=== PATIENT | male | born 1985 | race African-American/Black ===

== ENCOUNTER → 2016-07-11 | Outpatient (CLI) | payer MEDICAID | LOC: RAD 07:35 | PROVIDERS: ATTEND Internal Medicine Gastroenterology | DX: K31.84 Gastroparesis (principal) | CPT/HCPCS: 78264; A9541 ==

== ENCOUNTER → 2016-09-14 | Outpatient (CLI) | payer MEDICAID | LOC: RAD 12:22 | PROVIDERS: ATTEND Internal Medicine Nephrology | DX: N18.2 Chronic kidney disease, stage 2 (mild) (principal); E10.21 Type 1 diabetes mellitus with diabetic nephropathy; R80.9 Proteinuria, unspecified | CPT/HCPCS: 76770 ==

== ENCOUNTER → 2016-10-12 | Outpatient (CLI) | payer MEDICAID ==
[2016-10-12 10:10] LABS: ABSOLUTE EOSINOPHILS # (AUTO) 0.1 10^3/uL (0.0-0.6); ABSOLUTE LYMPHOCYTES (AUTO) 1.6 10^3/uL (0.5-4.7); ABSOLUTE MONOCYTES (AUTO) 0.4 10^3/uL (0.1-1.4); BASOPHILS % (AUTO) 0.6 % (0-2); EOSINOPHILS % (AUTO) 2.2 % (0-6); HEMATOCRIT 33.6 % (37.9-51.0); HEMOGLOBIN 11.5 g/dL (13.5-17.0); HGB HCT DIFFERENCE 0.9; MEAN CORPUSCULAR HEMOGLOBIN 28.6 pg (27.0-33.4); MEAN CORPUSCULAR HGB CONC 34.3 g/dL (32.0-36.0); MEAN CORPUSCULAR VOLUME 83 fl (80-97); MONOCYTES % (AUTO) 7.2 % (3-13); RED BLOOD COUNT 4.04 10^6/uL (4.35-5.55); RED CELL DISTRIBUTION WIDTH 13.9 % (11.5-14.0); WHITE BLOOD COUNT 5.1 10^3/uL (4.0-10.5)
[2016-10-12 10:24] LABS: ALANINE AMINOTRANSFERASE 35 U/L (21-72); ALBUMIN 3.6 g/dL (3.5-5.0); ALKALINE PHOSPHATASE 129 U/L (38-126); ANION GAP 12 (5-19); ASPARTATE AMINO TRANSFERASE 20 U/L (17-59); BILIRUBIN,DIRECT 0.3 mg/dL (0.0-0.4); BILIRUBIN,TOTAL 0.3 mg/dL (0.2-1.3); BLOOD UREA NITROGEN 16 mg/dL (7-20); CALCIUM 9.8 mg/dL (8.4-10.2); CARBON DIOXIDE 28 mmol/L (22-30); CHLORIDE 102 mmol/L (98-107); CREATININE RESULT 1.09 mg/dL (0.52-1.25); GLUCOSE 324 mg/dL (75-110); MAGNESIUM 1.7 mg/dL (1.6-2.3); POTASSIUM 4.3 mmol/L (3.6-5.0); SODIUM 142.2 mmol/L (137-145); TOTAL PROTEIN 6.4 g/dL (6.3-8.2)
[2016-10-12 13:37] LABS: APPEARANCE,URINE CLEAR; BILIRUBIN,URINE NEGATIVE (NEGATIVE); GLUCOSE, URINE >=500 mg/dL (NEGATIVE); KETONES,URINE NEGATIVE (NEGATIVE); LEUKOCYTE ESTERASE,URINE NEGATIVE (NEGATIVE); NITRITE,URINE NEGATIVE (NEGATIVE); PROTEIN,URINE NEGATIVE (NEGATIVE); URINE SPECIFIC GRAVITY 1.028; UROBILINOGEN,URINE NEGATIVE mg/dL (<2.0)
[2016-10-12 14:03] LABS: URINE CREATININE 61.5 mg/dL (24-392); URINE PROTEIN 12.7 mg/dL (<12)
== END ==
LOC: OD 09:30
PROVIDERS: ATTEND Internal Medicine Nephrology
DX: I12.9 Hypertensive chronic kidney disease with stage 1 through stage 4 chronic kidney disease, or unspecified chronic kidney disease (principal); N18.2 Chronic kidney disease, stage 2 (mild); E11.9 Type 2 diabetes mellitus without complications; D64.9 Anemia, unspecified
CPT/HCPCS: 36415; 80053; 81001; 82570; 82728; 83540; 83550; 83735; 84100; 84156; 84443; 85025

== ENCOUNTER → 2016-11-26 | Outpatient (CLI) | payer MEDICAID ==
[2016-11-26 15:59] LABS: HEMATOCRIT 39.6 % (37.9-51.0); HEMOGLOBIN 13.1 g/dL (13.5-17.0); HGB HCT DIFFERENCE -0.3; MEAN CORPUSCULAR HGB CONC 33.1 g/dL (32.0-36.0); MEAN CORPUSCULAR VOLUME 82 fl (80-97); RED BLOOD COUNT 4.86 10^6/uL (4.35-5.55); RED CELL DISTRIBUTION WIDTH 13.6 % (11.5-14.0); WHITE BLOOD COUNT 4.1 10^3/uL (4.0-10.5)
[2016-11-26 16:17] LABS: APPEARANCE,URINE CLEAR; BILIRUBIN,URINE NEGATIVE (NEGATIVE); GLUCOSE, URINE >=500 mg/dL (NEGATIVE); KETONES,URINE NEGATIVE (NEGATIVE); LEUKOCYTE ESTERASE,URINE NEGATIVE (NEGATIVE); NITRITE,URINE NEGATIVE (NEGATIVE); PROTEIN,URINE 30 mg/dL (NEGATIVE); URINE SPECIFIC GRAVITY 1.025; UROBILINOGEN,URINE NEGATIVE mg/dL (<2.0)
[2016-11-26 16:40] LABS: ANION GAP 14 (5-19); BLOOD UREA NITROGEN 19 mg/dL (7-20); CALCIUM 10.3 mg/dL (8.4-10.2); CARBON DIOXIDE 25 mmol/L (22-30); CHLORIDE 104 mmol/L (98-107); CREATININE RESULT 0.71 mg/dL (0.52-1.25); GLUCOSE 222 mg/dL (75-110); POTASSIUM 4.7 mmol/L (3.6-5.0)
[2016-11-28 11:39] LABS: CREATININE URINE 87.2 mg/dL (Not Estab.); MICROALBUMIN URINE 136.3 ug/mL (Not Estab.)
== END ==
LOC: OD 14:40
PROVIDERS: ATTEND Internal Medicine Nephrology
DX: N18.2 Chronic kidney disease, stage 2 (mild) (principal); R80.9 Proteinuria, unspecified; E11.9 Type 2 diabetes mellitus without complications; D64.9 Anemia, unspecified
CPT/HCPCS: 36415; 80048; 81001; 82043; 82570; 85027

== ENCOUNTER 2017-05-20 18:04 | Emergency (ER) | payer MEDICAID, OTHER ==
[2017-05-20 18:37] VITALS: BP 144/88
--- NOTE | 2017-05-20 19:35 | ER Document Report ---
ED Medical Screen (RME) - General Chief Complaint: Headache Stated Complaint: FATIGUE,HEADACHE Time Seen by Provider: 05/20/17 19:16 TRAVEL OUTSIDE OF THE [place] IN LAST 30 DAYS: No - HPI Notes: 05/20/17 19:33 This is a 31-year-old male with history of diabetes and chronic kidney disease who presents with a multitude of symptoms. Unclear exactly how long these symptoms have been going on but most apparently have been over the last 3 days. He has not had an wallpaper printer for approximately a year now but has been using Humalog through an insulin pump but recently has changed over to boluses subcu to save money and insulin. His sugars have been running from 39 up to 600s intermittently. He has had nausea but this is improved right now with Phenergan. Also admits to fairly diffuse pain some from arthritis others include headache chest discomfort and abdominal pain though more in the bilateral flank regions. No obvious fever. No purulent cough. He has a fairly large positive review of systems otherwise. Brief exam shows lungs and heart to be normal. Mild tenderness in the bilateral lateral abdomen in the seated position. Patient was seen for a rapid medical screening exam. Further assessment and diagnostic/treatment considerations will be performed further as appropriate treatment areas are available for a complete evaluation. - Related Data Allergies/Adverse Reactions: No Known Allergies Allergy (Verified 05/20/17 18:23) Past Medical History - Social History Frequency of alcohol use: None Drug Abuse: None - Past Medical History Cardiac Medical History: Reports: Hx Hypertension Endocrine Medical History: Reports: Hx Diabetes Mellitus Type 1 Renal/ Medical History: Denies: Hx Peritoneal Dialysis Psychiatric Medical History: Reports: Hx Bipolar Disorder Past Surgical History: Reports: Hx Oral Surgery, Hx Orthopedic Surgery - Immunizations Hx Diphtheria, Pertussis, Tetanus Vaccination: Yes Physical Exam - Vital signs Vitals: Temp Pulse Resp BP Pulse Ox 98.9 F 106 H 16 144/88 H 99 05/20/17 18:37 05/20/17 18:37 05/20/17 18:37 05/20/17 18:37 05/20/17 18:37 Course - Vital Signs Vital signs: Temp Pulse Resp BP Pulse Ox 98.9 F 106 H 16 144/88 H 99 05/20/17 18:37 05/20/17 18:37 05/20/17 18:37 05/20/17 18:37 05/20/17 18:37 - Laboratory Laboratory results interpreted by me: 05/20/17 18:29 POC Glucose 228 H
[2017-05-20 20:14] LABS: ABSOLUTE LYMPHOCYTES (AUTO) 1.6 10^3/uL (0.5-4.7); ABSOLUTE MONOCYTES (AUTO) 0.4 10^3/uL (0.1-1.4); ABSOLUTE NEUT (AUTO) 2.9 10^3/uL (1.7-8.2); BASOPHILS % (AUTO) 0.4 % (0-2); EOSINOPHILS % (AUTO) 0.6 % (0-6); HEMATOCRIT 42.2 % (37.9-51.0); HEMOGLOBIN 14.4 g/dL (13.5-17.0); MEAN CORPUSCULAR HEMOGLOBIN 27.8 pg (27.0-33.4); MEAN CORPUSCULAR HGB CONC 34.1 g/dL (32.0-36.0); MEAN CORPUSCULAR VOLUME 82 fl (80-97); MONOCYTES % (AUTO) 7.5 % (3-13); RED BLOOD COUNT 5.17 10^6/uL (4.35-5.55); RED CELL DISTRIBUTION WIDTH 14.1 % (11.5-14.0); SEGMENTED NEUTROPHILS % (AUTO) 58.5 % (42-78); WHITE BLOOD COUNT 4.9 10^3/uL (4.0-10.5)
[2017-05-20 20:27] LABS: APPEARANCE,URINE CLEAR; BILIRUBIN,URINE NEGATIVE (NEGATIVE); GLUCOSE, URINE >=500 mg/dL (NEGATIVE); KETONES,URINE 20 mg/dL (NEGATIVE); LEUKOCYTE ESTERASE,URINE NEGATIVE (NEGATIVE); NITRITE,URINE NEGATIVE (NEGATIVE); PROTEIN,URINE 100 mg/dL (NEGATIVE); UROBILINOGEN,URINE NEGATIVE mg/dL (<2.0)
[2017-05-20 20:28] LABS: ALANINE AMINOTRANSFERASE 38 U/L (21-72); ALBUMIN 4.9 g/dL (3.5-5.0); ALKALINE PHOSPHATASE 97 U/L (38-126); ANION GAP 15 (5-19); ASPARTATE AMINO TRANSFERASE 21 U/L (17-59); BILIRUBIN,DIRECT 0.3 mg/dL (0.0-0.4); BLOOD UREA NITROGEN 13 mg/dL (7-20); CALCIUM 10.1 mg/dL (8.4-10.2); CARBON DIOXIDE 27 mmol/L (22-30); CHLORIDE 98 mmol/L (98-107); CREATININE RESULT 0.83 mg/dL (0.52-1.25); GLUCOSE 235 mg/dL (75-110); LIPASE 46.4 U/L (23-300); POTASSIUM 4.8 mmol/L (3.6-5.0); SODIUM 140.2 mmol/L (137-145); TOTAL PROTEIN 8.1 g/dL (6.3-8.2)
--- NOTE | 2017-05-20 20:31 | RADIOLOGY REPORT (SQ) ---
EXAM DESCRIPTION: CHEST PA/LAT COMPLETED DATE/TIME: 05/20/2017 8:12 pm REASON FOR STUDY: CP COMPARISON: None. EXAM PARAMETERS: NUMBER OF VIEWS: two views TECHNIQUE: Digital Frontal and Lateral radiographic views of the chest acquired. RADIATION DOSE: NA LIMITATIONS: none FINDINGS: LUNGS AND PLEURA: No opacities, masses or pneumothorax. No pleural effusion. MEDIASTINUM AND HILAR STRUCTURES: No masses or contour abnormalities. HEART AND VASCULAR STRUCTURES: Heart normal size. No evidence for failure. BONES: No acute findings. HARDWARE: None in the chest. OTHER: No other significant finding. IMPRESSION: NO SIGNIFICANT RADIOGRAPHIC FINDING IN THE CHEST. TECHNICAL DOCUMENTATION: JOB ID: [id number] [employer] All Rights Reserved
[2017-05-20] MEDS ORDERED: NORMAL SALINE 1000 ML 1,000 ML IV ONE (22:07)
--- NOTE | 2017-05-20 22:10 | ER Document Report ---
ED General - General Chief Complaint: Headache Stated Complaint: FATIGUE,HEADACHE Time Seen by Provider: 05/20/17 19:16 Notes: Patient is a 31-year-old male who presents with complaint of feeling fatigued and weak and having body aches and being dizzy. Patient says this started after he switched from doing his insulin pump to doing subcutaneous injections of insulin. He said he did this because he lost his Medicaid because he makes too much money. He says this is more affordable with administering his insulin ; however, he says that his sugars have been fluctuating greatly since then. He says his [place] sugars have been as low as 39 but is high of 600. He denies any fevers. He says had some nausea but no vomiting. He says his IBS with bowel movements are always sometimes constipated or sometimes loose. He has had some intermittent headaches. He has no other complaints at this time. TRAVEL OUTSIDE OF THE [place] IN LAST 30 DAYS: No - Related Data Allergies/Adverse Reactions: No Known Allergies Allergy (Verified 05/20/17 18:23) Past Medical History - Social History Smoking Status: Never Smoker Frequency of alcohol use: None Drug Abuse: None Family History: Reviewed & Not Pertinent Patient has suicidal ideation: No Patient has homicidal ideation: No - Past Medical History Cardiac Medical History: Reports: Hx Hypertension Endocrine Medical History: Reports: Hx Diabetes Mellitus Type 1 Renal/ Medical History: Denies: Hx Peritoneal Dialysis Psychiatric Medical History: Reports: Hx Bipolar Disorder Past Surgical History: Reports: Hx Oral Surgery, Hx Orthopedic Surgery - Immunizations Hx Diphtheria, Pertussis, Tetanus Vaccination: Yes Review of Systems - Review of Systems Notes: My Normal Review Basic REVIEW OF SYSTEMS: CONSTITUTIONAL : Denies fever. Has had body aches and fatigue. EENT: Denies eye, ear, throat, or mouth pain or symptoms. Denies nasal or sinus congestion. CARDIOVASCULAR: Denies chest pain. RESPIRATORY: Denies cough, cold, or chest congestion. Denies shortness of breath, difficulty breathing, or wheezing. GASTROINTESTINAL: Denies abdominal pain. Nausea. No vomiting. GENITOURINARY: Denies difficulty urinating, painful urination, burning, frequency, or blood in urine. MUSCULOSKELETAL: Muscle aches SKIN: Denies rash or skin lesions. NEUROLOGICAL: Denies altered mental status or loss of consciousness. Intermittent headache. Denies weakness or paralysis or loss of use of either side. Denies problems with gait or speech. Denies sensory or motor loss. ALL OTHER SYSTEMS REVIEWED AND NEGATIVE. Physical Exam - Vital signs Vitals: Temp Pulse Resp BP Pulse Ox 98.9 F 106 H 16 144/88 H 99 05/20/17 18:37 05/20/17 18:37 05/20/17 18:37 05/20/17 18:37 05/20/17 18:37 - Notes Notes: General Appearance: Well nourished, alert, cooperative, no acute distress, no obvious discomfort. Well appearing. Vitals: reviewed, See vital signs table. Head: no swelling or tenderness to the head Eyes: PERRL, EOMI, Conjuctiva clear Mouth: No decreasd moisture Neck: Supple, no neck tenderness Lungs: No wheezing, No rales, No rhonci, No accessory muscle use, good air exchange bilaterally. Heart: Normal rate, Regular rythm, No murmur, no rub Abdomen: Normal BS, soft, No rigidity, No abdominal tenderness, No guarding, no rebound, no abdominal masses, no organomegaly Extremities: strength 5/5 in all extremities, good pulses in all extremities, no swelling or tenderness in the extremities, no edema. Skin: warm, dry, appropriate color, no rash Neuro: speech clear, oriented x 3, normal affect, responds appropriately to questions. Course - Re-evaluation Re-evalutation: 05/21/17 03:53 Patient is feeling much improved after receiving the IV fluids. I suspect that his symptoms are related to his fluctuating blood sugars most likely some dehydration so she with that as well. He has no metabolic acidosis. He does have some small ketones in his urine. He is not in DKA. I will place him on Lantus basal insulin and hopefully this will help keep his blood sugars more stable. I will give him instructions on a sliding scale for his insulin usage. Strongly encouraged him to follow back up with his primary care physician. I did attempt to get the patient a Lantus pen here to go home with; however, the nurse informed me that we no longer carry the Lantus pens. I therefore look for the cheapest way of getting him long-acting insulin. The cheapest way I could find was on [facility] with a coupon for 5 Lantus pens for $243. Patient says it will be difficult to afford that he will attempt to try to get the insulin being that the regular insulin is not controlling his sugars well at home. Patient encouraged to return to ER if he has vomiting, recurrence of the symptoms of weakness and fatigue and body aches, or if he feels that his sugars are again not well controlled. Patient agrees with plan will be discharged home. Dictation of this chart was performed using voice recognition software; therefore, there may be some unintended grammatical errors. - Vital Signs Vital signs: Temp Pulse Resp BP Pulse Ox 98.9 F 106 H 16 144/88 H 99 05/20/17 18:37 05/20/17 18:37 05/20/17 18:37 05/20/17 18:37 05/20/17 18:37 - Laboratory Result Diagrams: 05/20/17 19:50 05/20/17 19:50 Laboratory results interpreted by me: 05/20/17 05/20/17 05/20/17 18:29 19:50 19:50 RDW 14.1 H Glucose 235 H POC Glucose 228 H Urine Protein Urine Glucose (UA) Urine Ketones Urine Ascorbic Acid 05/20/17 05/20/17 19:50 23:03 RDW Glucose POC Glucose 213 H Urine Protein 100 H Urine Glucose (UA) >=500 H Urine Ketones 20 H Urine Ascorbic Acid 40 H Discharge - Discharge Clinical Impression: Dehydration, Hyperglycemia Condition: Good Disposition: HOME, SELF-CARE Additional Instructions: Please give yourself 15 units of Lantus every morning and continue a sliding scale with your Novolog at home. Please keep a close eye on your blood sugars to make sure they are not dropping. Please follow up closely with your doctor. Return to the ER if you have any further concerns. Prescriptions: Insulin Glargine,Hum.rec.anlog [Lantus Solostar] 15 unit SQ QAM #1 insuln.pen Insulin Lispro [Humalog Insulin 100 Unit/1 ml 3 ml Vial] 0 unit SUBCUT .SLD SCALE #10 ml Lantus Solostar [place] 1 unit SUBCUT QAM #1 Referrals: SIOMARA CARPIO DO [Primary Care Provider] - Follow up in 3-5 days
[2017-05-20] MEDS: NORMAL SALINE 1000 ML 1,000 ML IV PRN ×2 (22:25→22:36)
--- NOTE | 2017-05-20 23:03 | EKG REPORT ---
SEVERITY:- ABNORMAL ECG - SINUS TACHYCARDIA CONSIDER LEFT VENTRICULAR HYPERTROPHY : Confirmed by: Malena Jean 20-May-2017 23:02:47
[2017-05-20] MEDS ORDERED: INSULIN GLARGINE,HUM.REC.ANLOG 300 UNIT/3 ML INSULN.PEN SUBCUT ONE (23:30)
[2017-05-20] MEDS ORDERED: INSULIN GLARGINE,HUM.REC.ANLOG 1,000 UNIT/10 ML UNIT SUBCUT ONE (23:58)
== END 2017-05-21 01:03 | disposition home or self-care (01) ==
LOC: ER 18:04
DX: E86.0 Dehydration (principal); E10.65 Type 1 diabetes mellitus with hyperglycemia; R51 Headache; R53.83 Other fatigue; I10 Essential (primary) hypertension; Z79.4 Long term (current) use of insulin
CPT/HCPCS: 93005; 99284; 96360; 36415; 82962; 83690; 85025; 80053; 81001; 71020; 93010; J7030; J1815

== ENCOUNTER 2017-06-02 13:23 | Emergency (ER) | payer SELFPAY ==
[2017-06-02 13:28] VITALS: BP 146/89
[2017-06-02] MEDS ORDERED: CIPROFLOXACIN HCL/DEXAMETH OTIC DROP 7.5 ML AD ONE (13:49)
[2017-06-02] MEDS ORDERED: IBUPROFEN 800 MG TABLET PO ONE (13:49)
--- NOTE | 2017-06-02 13:54 | ER Document Report ---
HPI - HPI Onset: Other Onset/Duration: Gradual Quality of pain: Throbbing Severity: Severe Pain Level: 5 Context: Patient states he has had been having right ear pain for the last 4-5 days and is now having difficulty hearing out of the ear. Denies fever. No congestion. Associated Symptoms: Earache Exacerbated by: Denies Relieved by: Denies Similar symptoms previously: Yes Recently seen / treated by doctor: No - ROS ROS below otherwise negative: Yes Systems Reviewed and Negative: Yes All other systems reviewed and negative - CONSTITUTIONAL Constitutional: DENIES: Fever - EENT EENT: REPORTS: Ear Pain. DENIES: Congestion - NEURO Neurology: DENIES: Headache - CARDIOVASCULAR Cardiovascular: DENIES: Chest pain - RESPIRATORY Respiratory: DENIES: Trouble Breathing - GASTROINTESTINAL Gastrointestinal: DENIES: Abdominal Pain - URINARY Urinary: DENIES: Dysuria - MUSCULOSKELETAL Musculoskeletal: DENIES: Extremity pain - DERM Skin Color: Normal Past Medical History - General Information source: Patient - Social History Smoking Status: Never Smoker Cigarette use (# per day): No Frequency of alcohol use: Occasional Drug Abuse: None Lives with: Family Family History: Reviewed & Not Pertinent - Past Medical History Cardiac Medical History: Reports: Hx Hypertension Endocrine Medical History: Reports: Hx Diabetes Mellitus Type 1 Psychiatric Medical History: Reports: Hx Bipolar Disorder Past Surgical History: Reports: Hx Oral Surgery, Hx Orthopedic Surgery - Immunizations Hx Diphtheria, Pertussis, Tetanus Vaccination: Yes Vertical Provider Document - CONSTITUTIONAL Agree With Documented VS: Yes Exam Limitations: No Limitations General Appearance: WD/WN, No Apparent Distress - INFECTION CONTROL TRAVEL OUTSIDE OF THE [place] IN LAST 30 DAYS: No - HEENT HEENT: Atraumatic, Normocephalic Notes: Left ear and throat normal. Pain with movement of right auricle, mild edema noted to canal. Unable to see the TM. - NECK Neck: Normal Inspection - RESPIRATORY Respiratory: Breath Sounds Normal, No Respiratory Distress O2 Sat by Pulse Oximetry: 95 - CARDIOVASCULAR Cardiovascular: Regular Rate, Regular Rhythm - MUSCULOSKELETAL/EXTREMETIES Musculoskeletal/Extremeties: MAEW - NEURO Level of Consciousness: Awake, Alert, Appropriate - DERM Integumentary: Warm, Dry Course - Re-evaluation Re-evalutation: 06/02/17 14:01 Ciprodex instilled to right ear without difficulty. Patient tolerated well. - Vital Signs Vital signs: Temp Pulse Resp BP Pulse Ox 98.7 F 102 H 18 146/89 H 95 06/02/17 13:28 06/02/17 13:28 06/02/17 13:28 06/02/17 13:28 06/02/17 13:28 Discharge - Discharge Clinical Impression: Right otitis externa Qualifiers: Otitis externa type: unspecified type Chronicity: acute Qualified Code(s): H60.501 - Unspecified acute noninfective otitis externa, right ear Condition: Good Disposition: HOME, SELF-CARE Instructions: Use of Ear Drops ([facility]) Additional Instructions: Use eardrops for 1 week as directed Tylenol or ibuprofen as needed for ear pain Follow-up with your doctor next week for recheck Do not stick anything into your ears return as needed
== END 2017-06-02 14:35 | disposition home or self-care (01) ==
LOC: ER 13:23
DX: H60.501 Unspecified acute noninfective otitis externa, right ear (principal); H92.01 Otalgia, right ear; H91.91 Unspecified hearing loss, right ear
CPT/HCPCS: 99282; J3490

== ENCOUNTER → 2017-10-16 | Outpatient (CLI) | payer MEDICARE, MEDICAID ==
[2017-10-16 15:04] LABS: HEMATOCRIT 40.3 % (37.9-51.0); HEMOGLOBIN 13.5 g/dL (13.5-17.0); MEAN CORPUSCULAR HEMOGLOBIN 26.9 pg (27.0-33.4); MEAN CORPUSCULAR HGB CONC 33.5 g/dL (32.0-36.0); MEAN CORPUSCULAR VOLUME 80 fl (80-97); PLATELET COUNT 221 10^3/uL (150-450); RED BLOOD COUNT 5.02 10^6/uL (4.35-5.55); WHITE BLOOD COUNT 8.2 10^3/uL (4.0-10.5)
[2017-10-16 15:19] LABS: ANION GAP 14 (5-19); BLOOD UREA NITROGEN 24 mg/dL (7-20); CALCIUM 9.9 mg/dL (8.4-10.2); CARBON DIOXIDE 29 mmol/L (22-30); CHLORIDE 99 mmol/L (98-107); GLUCOSE 200 mg/dL (75-110); POTASSIUM 4.4 mmol/L (3.6-5.0); SODIUM 141.8 mmol/L (137-145)
[2017-10-16 19:03] LABS: APPEARANCE,URINE CLEAR; BILIRUBIN,URINE NEGATIVE (NEGATIVE); COLOR,URINE YELLOW; GLUCOSE, URINE >=500 mg/dL (NEGATIVE); KETONES,URINE NEGATIVE (NEGATIVE); LEUKOCYTE ESTERASE,URINE NEGATIVE (NEGATIVE); NITRITE,URINE NEGATIVE (NEGATIVE); PROTEIN,URINE 30 mg/dL (NEGATIVE); URINE SPECIFIC GRAVITY 1.017; UROBILINOGEN,URINE NEGATIVE mg/dL (<2.0)
[2017-10-18 12:38] LABS: CREATININE URINE 121.6 mg/dL (Not Estab.); MICROALBUMIN URINE 163.9 ug/mL (Not Estab.)
== END ==
LOC: OD 14:11
PROVIDERS: ATTEND Internal Medicine Nephrology
DX: R80.2 Orthostatic proteinuria, unspecified (principal); N18.2 Chronic kidney disease, stage 2 (mild); D64.9 Anemia, unspecified
CPT/HCPCS: 36415; 80048; 81001; 82043; 82570; 85027

== ENCOUNTER → 2018-06-18 | Outpatient (CLI) | payer MEDICARE, MEDICAID ==
--- NOTE | 2018-06-18 12:27 | RADIOLOGY REPORT (SQ) ---
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 NUMBER OF VIEWS: Five views. TECHNIQUE: AP, lateral, obliques and odontoid radiographic images acquired of the cervical spine. LIMITATIONS: None. FINDINGS: MINERALIZATION: Normal. ALIGNMENT: Mild straightening of the normal cervical lordosis, likely positional. VERTEBRAE: Vertebral bodies of normal height. DISCS: Mild disc height loss at C2-3, stable. No Significant osteophytes or sclerosis. Remaining di sc height maintained. FORAMINA: No osteophytes or foraminal narrowing. LATERAL AND POSTERIOR ELEMENTS: Facets, lateral masses and spinous processes without significant find ings. 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 HARDWARE: None in the spine. SOFT TISSUES: No masses or calcifications. Lung apices clear. OTHER: No other significant finding. IMPRESSION: Mild disc height loss at C2-3, stable. Otherwise, unremarkable cervical spine radiographs. TECHNICAL DOCUMENTATION: JOB ID: [id number] [employer]- All Rights Reserved Reading location - IP/workstation name: [email or web address]
--- NOTE | 2018-06-18 12:39 | RADIOLOGY REPORT (SQ) ---
EXAM DESCRIPTION: LUMBAR SPINE COMPLETE COMPLETED DATE/TIME: 06/18/2018 12:05 pm REASON FOR STUDY: OSTEOARTHRITIS OF CSPINE, SPINE STENOSIS OF LUMBAR REGION M48.061 SPINAL STENOSIS , LUMBAR REGION WITHOUT NEUROGENIC CL M47.812 SPONDYLOSIS W/O MYELOPATHY OR RADICULOPATHY, CERVICA COMPARISON: 04/02/2016 NUMBER OF VIEWS: Five views including obliques. TECHNIQUE: AP, lateral, oblique, and sacral radiographic images acquired of the lumbar spine. LIMITATIONS: None. FINDINGS: MINERALIZATION: Normal. SEGMENTATION: Normal. No transitional anatomy. ALIGNMENT: Mild straightening of the normal lumbar lordosis. VERTEBRAE: Maintained height. No fracture or worrisome bone lesion. DISCS: Preserved height. No significant osteophytes or end plate irregularity. POSTERIOR ELEMENTS: Pedicles and facets are intact. No pars defect or posterior arch defects. HARDWARE: None in the spine. PARASPINAL SOFT TISSUES: Normal. PELVIS: Intact as visualized. No fractures or worrisome bone lesions. SI joints intact. OTHER: No other significant finding. IMPRESSION: Straightening of the normal lumbar lordosis, possibly positional. Otherwise, unremarkable lumbar spine radiographs. TECHNICAL DOCUMENTATION: JOB ID: [id number] [employer]- All Rights Reserved Reading location - IP/workstation name: [email or web address]
== END ==
LOC: OD 11:26
PROVIDERS: ATTEND Family Medicine
DX: M48.061 Spinal stenosis, lumbar region without neurogenic claudication (principal); M47.812 Spondylosis without myelopathy or radiculopathy, cervical region
CPT/HCPCS: 72050; 72110

== ENCOUNTER → 2018-10-31 | Outpatient (CLI) | payer MEDICAID, MEDICARE ==
[2018-10-31 12:31] LABS: HEMATOCRIT 43.4 % (37.9-51.0); HEMOGLOBIN 14.3 g/dL (13.5-17.0); MEAN CORPUSCULAR HEMOGLOBIN 27.2 pg (27.0-33.4); MEAN CORPUSCULAR VOLUME 83 fl (80-97); PLATELET COUNT 235 10^3/uL (150-450); RED BLOOD COUNT 5.26 10^6/uL (4.35-5.55); RED CELL DISTRIBUTION WIDTH 14.7 % (11.5-14.0); WHITE BLOOD COUNT 5.2 10^3/uL (4.0-10.5)
[2018-10-31 12:53] LABS: ANION GAP 16 (5-19); BLOOD UREA NITROGEN 23 mg/dL (7-20); CALCIUM 10.5 mg/dL (8.4-10.2); CARBON DIOXIDE 27 mmol/L (22-30); CHLORIDE 98 mmol/L (98-107); GLUCOSE 228 mg/dL (75-110); POTASSIUM 4.8 mmol/L (3.6-5.0); SODIUM 140.9 mmol/L (137-145)
[2018-10-31 18:08] LABS: APPEARANCE,URINE SLIGHTLY-CLOUDY; BILIRUBIN,URINE NEGATIVE (NEGATIVE); COLOR,URINE YELLOW; GLUCOSE, URINE 150 mg/dL (NEGATIVE); KETONES,URINE TRACE mg/dL (NEGATIVE); LEUKOCYTE ESTERASE,URINE NEGATIVE (NEGATIVE); NITRITE,URINE NEGATIVE (NEGATIVE); PROTEIN,URINE 30 mg/dL (NEGATIVE); URINE SPECIFIC GRAVITY 1.019; UROBILINOGEN,URINE NEGATIVE mg/dL (<2.0)
[2018-10-31 18:33] LABS: UR PRO/CREAT RATIO RESULT 0.2 mg/mg (0.0-0.2); URINE CREATININE 236.7 mg/dL (24-392); URINE PROTEIN 37.9 mg/dL (<12)
== END ==
LOC: OD 11:35
PROVIDERS: ATTEND Internal Medicine Nephrology
DX: I12.9 Hypertensive chronic kidney disease with stage 1 through stage 4 chronic kidney disease, or unspecified chronic kidney disease (principal); N18.2 Chronic kidney disease, stage 2 (mild); D64.9 Anemia, unspecified; E11.22 Type 2 diabetes mellitus with diabetic chronic kidney disease; R80.9 Proteinuria, unspecified
CPT/HCPCS: 36415; 80048; 81001; 82570; 84156; 85027

== ENCOUNTER → 2018-11-10 | Outpatient (CLI) | payer MEDICARE, MEDICAID ==
[2018-11-10 14:34] LABS: HEMATOCRIT 35.8 % (37.9-51.0); HEMOGLOBIN 12.1 g/dL (13.5-17.0); MEAN CORPUSCULAR HEMOGLOBIN 27.8 pg (27.0-33.4); MEAN CORPUSCULAR HGB CONC 33.7 g/dL (32.0-36.0); MEAN CORPUSCULAR VOLUME 83 fl (80-97); PLATELET COUNT 234 10^3/uL (150-450); RED BLOOD COUNT 4.34 10^6/uL (4.35-5.55); RED CELL DISTRIBUTION WIDTH 14.4 % (11.5-14.0)
[2018-11-10 14:35] LABS: APPEARANCE,URINE CLEAR; BILIRUBIN,URINE NEGATIVE (NEGATIVE); COLOR,URINE STRAW; GLUCOSE, URINE >=500 mg/dL (NEGATIVE); KETONES,URINE NEGATIVE (NEGATIVE); LEUKOCYTE ESTERASE,URINE NEGATIVE (NEGATIVE); NITRITE,URINE NEGATIVE (NEGATIVE); PROTEIN,URINE NEGATIVE (NEGATIVE); URINE SPECIFIC GRAVITY 1.017; UROBILINOGEN,URINE NEGATIVE mg/dL (<2.0)
[2018-11-10 14:54] LABS: ANION GAP 12 (5-19); BLOOD UREA NITROGEN 20 mg/dL (7-20); CALCIUM 9.8 mg/dL (8.4-10.2); CARBON DIOXIDE 28 mmol/L (22-30); CHLORIDE 102 mmol/L (98-107); GLUCOSE 237 mg/dL (75-110); POTASSIUM 4.2 mmol/L (3.6-5.0); SODIUM 141.7 mmol/L (137-145)
[2018-11-10 15:11] LABS: UR PRO/CREAT RATIO RESULT 0.3 mg/mg (0.0-0.2); URINE CREATININE 67.3 mg/dL (24-392); URINE PROTEIN 19.3 mg/dL (<12)
== END ==
LOC: OD 14:02
PROVIDERS: ATTEND Internal Medicine Nephrology
DX: I12.9 Hypertensive chronic kidney disease with stage 1 through stage 4 chronic kidney disease, or unspecified chronic kidney disease (principal); N18.2 Chronic kidney disease, stage 2 (mild); R80.9 Proteinuria, unspecified; E11.22 Type 2 diabetes mellitus with diabetic chronic kidney disease; D64.9 Anemia, unspecified
CPT/HCPCS: 36415; 80048; 81001; 82570; 84156; 85027

== ENCOUNTER 2018-12-09 21:42 | Emergency (ER) | payer MEDICARE, MEDICAID ==
--- NOTE | 2018-12-09 22:59 | ER Document Report ---
ED Medical Screen (RME) - General Chief Complaint: Ear Pain Stated Complaint: JAW PAIN, POSSIBLE EAR INFECTION Time Seen by Provider: 12/09/18 22:45 Primary Care Provider: Aicha MCKOEN MD [Primary Care Provider] - Follow up as needed Notes: Patient is a 32-year-old male with a history of type 1 diabetes, glaucoma, spinal stenosis, hypertension stage III kidney disease and neuropathy who presents to the emergency department with a chief complaint of left ear pain and left facial swelling. Patient states that he developed left ear pain almost 2 weeks ago. Patient states he is also had a fever of 101.1 at home. Patient states he attempted to take his oxycodone 10 mg that he is prescribed for arthritis but has not been helping. Patient states he was seen at urgent care yesterday and diagnosed with a left ear infection and prescribed moxifloxacin which he is taken for the past 24 hours. Patient states that his sugars have been running in the 500s with the continued use of his insulin pump. Patient states he has had chills. Patient states he has had significant left ear pain and swelling. TRAVEL OUTSIDE OF THE [place] IN LAST 30 DAYS: No - Related Data Allergies/Adverse Reactions: No Known Allergies Allergy (Verified 05/20/17 18:23) Past Medical History - Social History Chew tobacco use (# tins/day): No Drug Abuse: None - Past Medical History Cardiac Medical History: Reports: Hx Hypertension Endocrine Medical History: Reports: Hx Diabetes Mellitus Type 1 Renal/ Medical History: Denies: Hx Peritoneal Dialysis Musculoskeltal Medical History: Reports Hx Arthritis Psychiatric Medical History: Reports: Hx Bipolar Disorder Past Surgical History: Reports: Hx Oral Surgery, Hx Orthopedic Surgery - Immunizations Hx Diphtheria, Pertussis, Tetanus Vaccination: Yes Physical Exam - Vital signs Vitals: Temp Pulse Resp BP Pulse Ox 98.8 F 112 H 22 H 152/95 H 100 12/09/18 21:48 12/09/18 21:48 12/09/18 21:48 12/09/18 21:48 12/09/18 21:48 - HEENT Notes: Patient does have left facial swelling with significant tenderness. Patient left ear tender to the external pinna and tragus. Patient does have a mild amount of mastoid tenderness. Positive large cervical lymph node noted. Also unable to visualize the left tympanic membrane as the ear canal is completely swollen. Pharynx is clear, tonsils appear normal in size without erythema or exudates. Airway is patent. Course - Re-evaluation Re-evalutation: 12/09/18 23:07 I have greeted and performed a rapid initial assessment of this patient. A comprehensive ED assessment and evaluation of the patient, analysis of test results and completion of the medical decision making process will be conducted by additional ED providers. - Vital Signs Vital signs: Temp Pulse Resp BP Pulse Ox 98.8 F 112 H 22 H 152/95 H 100 12/09/18 21:48 12/09/18 21:48 12/09/18 21:48 12/09/18 21:48 12/09/18 21:48 Doctor's Discharge - Discharge Referrals: Aicha MCKEON MD [Primary Care Provider] - Follow up as needed
[2018-12-09] MEDS ORDERED: NORMAL SALINE 1000 ML 1,000 ML IV ONE (23:09)
[2018-12-10 00:41] LABS: ABSOLUTE EOSINOPHILS # (AUTO) 0.2 10^3/uL (0.0-0.6); ABSOLUTE LYMPHOCYTES (AUTO) 1.5 10^3/uL (0.5-4.7); ABSOLUTE NEUT (AUTO) 6.8 10^3/uL (1.7-8.2); BASOPHILS % (AUTO) 0.5 % (0-2); EOSINOPHILS % (AUTO) 2.1 % (0-6); HEMOGLOBIN 11.3 g/dL (13.5-17.0); LYMPHOCYTES % (AUTO) 16.2 % (13-45); MEAN CORPUSCULAR HEMOGLOBIN 27.6 pg (27.0-33.4); MEAN CORPUSCULAR HGB CONC 33.2 g/dL (32.0-36.0); MEAN CORPUSCULAR VOLUME 83 fl (80-97); MONOCYTES % (AUTO) 10.2 % (3-13); PLATELET COUNT 222 10^3/uL (150-450); RED BLOOD COUNT 4.09 10^6/uL (4.35-5.55); RED CELL DISTRIBUTION WIDTH 14.9 % (11.5-14.0); TOTAL CELLS COUNTED % (AUTO) 100 %; WHITE BLOOD COUNT 9.6 10^3/uL (4.0-10.5)
[2018-12-10] MEDS ORDERED: MORPHINE SULFATE 10 MG/ML INJ IV ONE (00:43)
[2018-12-10 00:47] LABS: VENOUS BLOOD BASE EXCESS 3.4 mmol/L; VENOUS BLOOD HCO3 30.8 mmol/L (20-32); VENOUS BLOOD PH 7.34 (7.30-7.42)
--- NOTE | 2018-12-10 00:48 | ER Document Report ---
ED General - General Chief Complaint: Ear Pain Stated Complaint: JAW PAIN, POSSIBLE EAR INFECTION Time Seen by Provider: 12/09/18 22:45 Primary Care Provider: Aicha MCKEON MD [ACTIVE STAFF] - Follow up in 3-5 days BOBBY CAMPOS MD [ACTIVE STAFF] - Follow up in 3-5 days Notes: Patient is a 32-year-old male with type 1 diabetes mellitus that presents to the emergency department for chief complaint of left ear pain. Patient states that about a week ago he started having pain in his left ear, went to an urgent care this past weekend, and was diagnosed with otitis media and otitis externa, started on eardrops, and amoxicillin. Since that has been having worsening pain, and pain and goes to his left jaw and he is only had 2 doses of amoxicillin so far. He denies having fevers, chills, night sweats, is mainly complained of the pain in his ear which he currently rates as a 9 out of 10 describes as constantly throbbing and aching. He denies any difficulty swallowing, has not noticed significant facial swelling, and denies having chest pain, shortness of breath, difficulty breathing, nausea, vomiting or abdominal pain. Past Medical History: Diabetes mellitus, chronic kidney disease, hypertension, glaucoma Past Surgical History: Denies major surgical history Social History: Denies current tobacco, alcohol or drug use. Family History: Reviewed and noncontributory for presenting illness Allergies: Reviewed, see documented allergy list. REVIEW OF SYSTEMS: Other than noted above, the 12 point review of systems was reviewed with the patient and were negative, all pertinent findings are included in the HPI. PHYSICAL EXAMINATION: Vital signs reviewed, nursing noted reviewed. GENERAL: Patient appears uncomfortable on exam, but no acute distress. HEAD: Atraumatic, normocephalic. EYES: Eyes appear normal, extraocular movements intact, sclera anicteric, conjunctiva are normal. ENT: nares patent, oropharynx clear without exudates. Moist mucous membranes. The left external auditory canal, is edematous, and cannot see to the tympanic membrane, the right is unremarkable, and normal-appearing TM. NECK: Normal range of motion, supple without lymphadenopathy LUNGS: Breath sounds clear to auscultation bilaterally and equal. No wheezes rales or rhonchi. HEART: Heart rate tachycardic, regular rhythm, no audible murmur. ABDOMEN: Soft, nontender, normoactive bowel sounds. No rebound, guarding, or rigidity. No masses appreciated. EXTREMITIES: Nontender, good range of motion, no pitting or edema. NEUROLOGICAL: No focal neurological deficits. Moves all extremities spontaneou sly Motor and sensory grossly intact on exam. PSYCH: Appears uncomfortable, but normal affect and mood, and answering questions appropriately SKIN: Warm, Dry, normal turgor, no rashes or lesions noted on exposed skin TRAVEL OUTSIDE OF THE [place] IN LAST 30 DAYS: No - Related Data Allergies/Adverse Reactions: No Known Allergies Allergy (Verified 05/20/17 18:23) Past Medical History - Social History Smoking Status: Never Smoker Chew tobacco use (# tins/day): No Drug Abuse: None Family History: Reviewed & Not Pertinent Patient has suicidal ideation: No Patient has homicidal ideation: No - Past Medical History Cardiac Medical History: Reports: Hx Hypertension Endocrine Medical History: Reports: Hx Diabetes Mellitus Type 1 Renal/ Medical History: Denies: Hx Peritoneal Dialysis Musculoskeletal Medical History: Reports Hx Arthritis Psychiatric Medical History: Reports: Hx Bipolar Disorder Past Surgical History: Reports: Hx Oral Surgery, Hx Orthopedic Surgery - Immunizations Hx Diphtheria, Pertussis, Tetanus Vaccination: Yes Physical Exam - Vital signs Vitals: Temp Pulse Resp BP Pulse Ox 98.8 F 112 H 22 H 152/95 H 100 12/09/18 21:48 12/09/18 21:48 12/09/18 21:48 12/09/18 21:48 12/09/18 21:48 Course - Re-evaluation Re-evalutation: Patient seen and examined vital signs reviewed. Laboratory data and/or imaging were ordered as appropriate for the patient's pre senting symptoms and complaint, with consideration of any critical or life threatening conditions that may be associated with their obtained history and exam as noted above. Patient was treated with IV fluids, and morphine for pain Results were reviewed when available and demonstrated no leukocytosis, blood glucose was within reasonable range, CMP unremarkable, CT imaging demonstrated left otitis media and externa, without evidence of mastoiditis, or mandibular involvement, effectively ruling out malignant otitis externa in this patient. Patient overall was improved, I did give him a dose of IV ciprofloxacin, I do feel the patient is to be covered with antipseudomonal agents, given he does have diabetes, he is on moxifloxacin eardrops, I did place an ear wick, which patient tolerated, and it started him on ciprofloxacin, prescribed a total of 10 days, advised him to discontinue the amoxicillin, continue his eardrops as well using awake, he is provided with additional works to replace it if needed. The patient was re-evaluated and was stable and much improved Evaluation was most consistent with acute left-sided otitis media and otitis externa. Results were discussed with the patient at this point, after careful consideration I feel that that patient can be discharged from the emergency department, the patient was educated treatments and reasons to return to the emergency department based on their presumed diagnosis as noted above, they were advised to followup with a primary care physician in 2-3 days. Patient was agreeable to plan of care. *Note is created using voice recognition software and may contain spelling, syntax or grammatical errors. Laboratory 12/10/18 12/10/18 12/10/18 00:25 00:25 00:25 WBC 9.6 RBC 4.09 L Hgb 11.3 L Hct 34.0 L MCV 83 MCH 27.6 MCHC 33.2 RDW 14.9 H Plt Count 222 Seg Neutrophils % 71.0 Lymphocytes % 16.2 Monocytes % 10.2 Eosinophils % 2.1 Basophils % 0.5 Absolute Neutrophils 6.8 Absolute Lymphocytes 1.5 Absolute Monocytes 1.0 Absolute Eosinophils 0.2 Absolute Basophils 0.0 VBG pH VBG pCO2 VBG HCO3 VBG Base Excess Sodium 138.2 Potassium 4.3 Chloride 99 Carbon Dioxide 30 Anion Gap 9 BUN 20 Creatinine 1.00 Est GFR ( Amer) > 60 Est GFR (Non-Af Amer) > 60 Glucose 169 H Lactic Acid 1.1 Calcium 9.6 Total Bilirubin 0.4 Direct Bilirubin 0.2 Neonat Total Bilirubin Not Reportable Neonat Direct Bilirubin Not Reportable Neonat Indirect Bili Not Reportable AST 23 ALT 33 Alkaline Phosphatase 92 Total Protein 7.2 Albumin 4.4 12/10/18 00:25 WBC RBC Hgb Hct MCV MCH MCHC RDW Plt Count Seg Neutrophils % Lymphocytes % Monocytes % Eosinophils % Basophils % Absolute Neutrophils Absolute Lymphocytes Absolute Monocytes Absolute Eosinophils Absolute Basophils VBG pH 7.34 VBG pCO2 59.0 VBG HCO3 30.8 VBG Base Excess 3.4 Sodium Potassium Chloride Carbon Dioxide Anion Gap BUN Creatinine Est GFR ( Amer) Est GFR (Non-Af Amer) Glucose Lactic Acid Calcium Total Bilirubin Direct Bilirubin Neonat Total Bilirubin Neonat Direct Bilirubin Neonat Indirect Bili AST ALT Alkaline Phosphatase Total Protein Albumin - Vital Signs Vital signs: Temp Pulse Resp BP Pulse Ox 98.6 F 105 H 17 131/82 H 98 12/10/18 03:51 12/10/18 03:51 12/10/18 03:51 12/10/18 03:51 12/10/18 03:51 - Laboratory Result Diagrams: 12/10/18 00:25 12/10/18 00:25 Laboratory results interpreted by me: 12/10/18 12/10/18 00:25 00:25 RBC 4.09 L Hgb 11.3 L Hct 34.0 L RDW 14.9 H Glucose 169 H Discharge - Discharge Clinical Impression: Otitis media Qualifiers: Otitis media type: suppurative Chronicity: acute Laterality: left Recurrence: not specified as recurrent Spontaneous tympanic membrane rupture: without spontaneous rupture Qualified Code(s): H66.002 - Acute suppurative otitis media without spontaneous rupture of ear drum, left ear Otitis externa Qualifiers: Otitis externa type: unspecified type Chronicity: acute Laterality: left Qualified Code(s): H60.502 - Unspecified acute noninfective otitis externa, left ear Condition: Stable Disposition: HOME, SELF-CARE Instructions: Using Ear Drops with a Wick ([facility]), Otitis Externa ([facility]), Otitis Media ([facility]) Additional Instructions: Please continue to use the moxifloxacin eardrops, 4 drops twice daily using the wick, you should change the workout every 2 days, I want you to start taking an oral antibiotic, this is called ciprofloxacin, 500 mg twice daily, discontinue taking the previously prescribed amoxicillin. It should be noted that the new antibiotic can cause low blood sugars, so please monitor your sugar at least 3 times daily, and avoid taking this medication with any dairy product, or calcium supplementation as it deactivate the drug makes it ineffective. You need to take this medication for 10 days total. If your symptoms worsen you develop fever, or things are not improving over the next several days, do not hesitate to return to the emergency department. I also want you to follow-up with an ear nose and throat physician, the numbers been provided with your paperwork. Prescriptions: Ciprofloxacin HCl [Cipro 500 mg Tablet] 500 mg PO BID #20 tablet Referrals: Aicha MCKEON MD [ACTIVE STAFF] - Follow up in 3-5 days BOBBY CAMPOS MD [ACTIVE STAFF] - Follow up in 3-5 days
[2018-12-10 01:03] LABS: ALANINE AMINOTRANSFERASE 33 U/L (21-72); ALBUMIN 4.4 g/dL (3.5-5.0); ALKALINE PHOSPHATASE 92 U/L (38-126); ANION GAP 9 (5-19); ASPARTATE AMINO TRANSFERASE 23 U/L (17-59); BILIRUBIN,DIRECT 0.2 mg/dL (0.0-0.4); BILIRUBIN,TOTAL 0.4 mg/dL (0.2-1.3); BLOOD UREA NITROGEN 20 mg/dL (7-20); CALCIUM 9.6 mg/dL (8.4-10.2); CARBON DIOXIDE 30 mmol/L (22-30); CHLORIDE 99 mmol/L (98-107); GLUCOSE 169 mg/dL (75-110); POTASSIUM 4.3 mmol/L (3.6-5.0); SODIUM 138.2 mmol/L (137-145); TOTAL PROTEIN 7.2 g/dL (6.3-8.2)
[2018-12-10] MEDS ORDERED: TETRACAINE HCL 0.5% OPH SOLN 4 ML TOP ONE (01:03)
[2018-12-10] MEDS ORDERED: CIPROFLOXACIN 400 MG/D5W RTU 400 MG/200 ML RTUPB IV ONE (02:19)
--- NOTE | 2018-12-10 02:21 | RADIOLOGY REPORT (SQ) ---
EXAM DESCRIPTION: CT NECK WITH IV CONTRAST COMPLETED DATE/TME: 12/10/2018 01:11 CLINICAL HISTORY: 32 years Male, EAR PAIN, JAW PAIN Comparison: None. Technique: IV contrast. Coronal and sagittal reformat. This exam was performed according to our departmental dose-optimization program, which includes automated exposure control, adjustment of the mA and/or kV according to patient size and/or use of iterative reconstruction technique. [facility]: Dose Right [facility]: CareDose [facility]: Dose Right [facility]: Teradose 4D [facility]: [email or web address] LIMITATIONS: None Findings: Orbits, paranasal sinuses, and skull base: Moderate soft tissue occlusion of the left middle ear and left external auditory canal. No evidence of bony erosion. Well developed and well aerated mastoid air cells. Partially visualized remaining components appear unremarkable. Nasopharynx: Normal. Suprahyoid neck: Normal oropharynx, oral cavity, parapharyngeal space, and retropharyngeal space. Infrahyoid neck: Normal larynx, hypopharynx, and supraglottis. Thyroid: Normal. Thoracic inlet: Normal lung apices and brachial plexus. Lymph nodes: Normal. No lymphadenopathy. Vascular structures: Normal. Other findings: Atelectasis/scar. Mild C2-C3 disc desiccation. Impression: 1. Left otitis media. Differential diagnosis includes cholesteatoma. 2. Left otitis externa.
[2018-12-10] MEDS ORDERED: OXYCODONE-ACETAMINOPHEN 5-325 MG TABLET PO ONE (03:17)
[2018-12-10] MEDS ORDERED: HYDROCODONE/ACETAMINOPHEN 5-325 MG (6 TAB/ER DISP) PO PRN (03:18)
[2018-12-10 03:52] VITALS: BP 131/82
--- NOTE | 2018-12-10 04:37 | RADIOLOGY REPORT (SQ) ---
EXAM DESCRIPTION: CT NECK WITH IV CONTRAST COMPLETED DATE/TME: 12/10/2018 01:11 CLINICAL HISTORY: 32 years Male, EAR PAIN, JAW PAIN Comparison: None. Technique: IV contrast. Coronal and sagittal reformat. This exam was performed according to our departmental dose-optimization program, which includes automated exposure control, adjustment of the mA and/or kV according to patient size and/or use of iterative reconstruction technique. [facility]: Dose Right [facility]: CareDose [facility]: Dose Right [facility]: Teradose 4D [facility]: [place] LIMITATIONS: None Findings: Orbits, paranasal sinuses, and skull base: Moderate soft tissue occlusion of the left middle ear and left external auditory canal. No evidence of bony erosion. Well developed and well aerated mastoid air cells. Partially visualized remaining components appear unremarkable. Nasopharynx: Normal. Suprahyoid neck: Normal oropharynx, oral cavity, parapharyngeal space, and retropharyngeal space. Infrahyoid neck: Normal larynx, hypopharynx, and supraglottis. Thyroid: Normal. Thoracic inlet: Normal lung apices and brachial plexus. Lymph nodes: Normal. No lymphadenopathy. Vascular structures: Normal. Other findings: Atelectasis/scar. Mild C2-C3 disc desiccation. Impression: 1. Left otitis media. Differential diagnosis includes cholesteatoma. 2. Left otitis externa.
[2018-12-10] MEDS ORDERED: CIPROFLOXACIN 400 MG/D5W RTU 400 MG/200 ML RTUPB IV SCH (10:00)
== END 2018-12-10 03:54 | disposition home or self-care (01) ==
LOC: ER 21:42
DX: H66.002 Acute suppurative otitis media without spontaneous rupture of ear drum, left ear (principal); H60.502 Unspecified acute noninfective otitis externa, left ear; H92.02 Otalgia, left ear; R68.84 Jaw pain; E10.9 Type 1 diabetes mellitus without complications; I10 Essential (primary) hypertension; R00.0 Tachycardia, unspecified
CPT/HCPCS: 99283; 96361; 96375; 96365; 36415; 87040; 83605; 85025; 80053; 82803; 70487; 70491; J2270; A9270 ×2; J7030; J0744; J3490

== ENCOUNTER 2018-12-12 11:23 | Emergency (ER) | payer MEDICARE, MEDICAID ==
--- NOTE | 2018-12-12 11:49 | ER Document Report ---
ED Medical Screen (RME) - General Chief Complaint: High Blood Sugar Stated Complaint: DEHYDRATION Time Seen by Provider: 12/12/18 11:41 Primary Care Provider: SIOMARA CARPIO DO [Primary Care Provider] - Follow up as needed Mode of Arrival: Ambulatory Information source: Patient Notes: Patient is a 32-year-old male with history of type 1 diabetes presenting to the emergency department with multiple complaints. Patient reports blood sugars have been running high at home, he states he has a severe ear infection and states that he feels nauseous and weak. He reports he was seen at urgent care this morning and was referred to the emergency department for further work-up. Patient also reports he was seen in our emergency department just a few days ago and sent home on antibiotic eardrops and oral antibiotics for his ear infection. Exam: Patient alert, oriented and answering all questions appropriately with no acute distress noted. Lung sounds clear and equal bilaterally. I have greeted and performed a rapid initial assessment of this patient. A comprehensive ED assessment and evaluation of the patient, analysis of test results and completion of the medical decision making process will be conducted by additional ED providers. I have specifically instructed the patient or family members with the patient to immediately return to any nursing staff s hould anything change in the patient's condition or with their chief complaint. This medical record was dictated with voice recognizing software. There may be grammatical, syntax errors that are unintended. TRAVEL OUTSIDE OF THE [place] IN LAST 30 DAYS: No - Related Data Allergies/Adverse Reactions: No Known Allergies Allergy (Verified 12/12/18 11:26) Past Medical History - Past Medical History Cardiac Medical History: Reports: Hx Hypertension Endocrine Medical History: Reports: Hx Diabetes Mellitus Type 1 Renal/ Medical History: Denies: Hx Peritoneal Dialysis Musculoskeltal Medical History: Reports Hx Arthritis Psychiatric Medical History: Reports: Hx Bipolar Disorder Past Surgical History: Reports: Hx Oral Surgery, Hx Orthopedic Surgery - Immunizations Hx Diphtheria, Pertussis, Tetanus Vaccination: Yes Physical Exam - Vital signs Vitals: Temp Pulse Resp BP Pulse Ox 98.8 F 98 16 121/68 94 12/12/18 11:39 12/12/18 11:39 12/12/18 11:39 12/12/18 11:39 12/12/18 11:39 Course - Vital Signs Vital signs: Temp Pulse Resp BP Pulse Ox 98.8 F 98 16 121/68 94 07/05/19 11:39 12/12/18 11:39 12/12/18 11:39 12/12/18 11:39 12/12/18 11:39 Doctor's Discharge - Discharge Referrals: SIOMARA CARPIO, [Primary Care Provider] - Follow up as needed
[2018-12-12 12:06] LABS: VENOUS BLOOD BASE EXCESS 2.5 mmol/L; VENOUS BLOOD HCO3 29.5 mmol/L (20-32); VENOUS BLOOD PCO2 58.2 mmHg (35-63); VENOUS BLOOD PH 7.32 (7.30-7.42)
[2018-12-12 12:08] LABS: ABSOLUTE BASOPHILS # (AUTO) 0.1 10^3/uL (0.0-0.2); ABSOLUTE EOSINOPHILS # (AUTO) 0.3 10^3/uL (0.0-0.6); ABSOLUTE LYMPHOCYTES (AUTO) 1.8 10^3/uL (0.5-4.7); ABSOLUTE MONOCYTES (AUTO) 0.8 10^3/uL (0.1-1.4); ABSOLUTE NEUT (AUTO) 4.7 10^3/uL (1.7-8.2); BASOPHILS % (AUTO) 0.7 % (0-2); EOSINOPHILS % (AUTO) 3.9 % (0-6); HEMATOCRIT 32.3 % (37.9-51.0); HEMOGLOBIN 10.7 g/dL (13.5-17.0); MEAN CORPUSCULAR HEMOGLOBIN 27.8 pg (27.0-33.4); MEAN CORPUSCULAR HGB CONC 33.3 g/dL (32.0-36.0); MEAN CORPUSCULAR VOLUME 83 fl (80-97); MONOCYTES % (AUTO) 10.8 % (3-13); PLATELET COUNT 257 10^3/uL (150-450); RED BLOOD COUNT 3.87 10^6/uL (4.35-5.55); RED CELL DISTRIBUTION WIDTH 14.8 % (11.5-14.0); SEGMENTED NEUTROPHILS % (AUTO) 61.6 % (42-78); TOTAL CELLS COUNTED % (AUTO) 100 %; WHITE BLOOD COUNT 7.7 10^3/uL (4.0-10.5)
[2018-12-12 12:26] LABS: ALANINE AMINOTRANSFERASE 32 U/L (21-72); ALBUMIN 3.9 g/dL (3.5-5.0); ALKALINE PHOSPHATASE 96 U/L (38-126); ANION GAP 8 (5-19); ASPARTATE AMINO TRANSFERASE 20 U/L (17-59); BILIRUBIN,DIRECT 0.2 mg/dL (0.0-0.4); BILIRUBIN,TOTAL 0.3 mg/dL (0.2-1.3); BLOOD UREA NITROGEN 25 mg/dL (7-20); CALCIUM 9.8 mg/dL (8.4-10.2); CARBON DIOXIDE 30 mmol/L (22-30); CHLORIDE 101 mmol/L (98-107); GLUCOSE 174 mg/dL (75-110); POTASSIUM 4.8 mmol/L (3.6-5.0); SODIUM 138.6 mmol/L (137-145); TOTAL PROTEIN 6.8 g/dL (6.3-8.2)
--- NOTE | 2018-12-12 14:09 | ER Document Report ---
ED General - General Chief Complaint: High Blood Sugar Stated Complaint: DEHYDRATION Time Seen by Provider: 12/12/18 11:41 Primary Care Provider: SIOMARA CARPIO DO [Primary Care Provider] - Follow up as needed Mode of Arrival: Ambulatory Notes: 32-year-old male with history of insulin-dependent type 1 diabetes presents to the emergency department with multiple complaints. He was recently seen here on December 10 and diagnosed with otitis externa and otitis media and placed on ciprofloxacin after treatment failure from being seen at an urgent care and moxifloxacin drops. Patient was given referral to ENT and he has not called them yet. He said that the pain has been unbearable. He denies fevers or chills, nausea or vomiting, shortness of breath or chest pain, abdominal pain. His main complaint is that he has acute pain in the left ear and jaw. TRAVEL OUTSIDE OF THE [place] IN LAST 30 DAYS: No - Related Data Allergies/Adverse Reactions: No Known Allergies Allergy (Verified 12/12/18 11:26) Past Medical History - General Information source: Patient - Social History Smoking Status: Current Some Day Smoker Family History: Reviewed & Not Pertinent Patient has suicidal ideation: No Patient has homicidal ideation: No - Past Medical History Cardiac Medical History: Reports: Hx Hypertension Endocrine Medical History: Reports: Hx Diabetes Mellitus Type 1 Renal/ Medical History: Denies: Hx Peritoneal Dialysis Musculoskeletal Medical History: Reports Hx Arthritis Psychiatric Medical History: Reports: Hx Bipolar Disorder Past Surgical History: Reports: Hx Oral Surgery, Hx Orthopedic Surgery - Immunizations Hx Diphtheria, Pertussis, Tetanus Vaccination: Yes Review of Systems - Review of Systems Constitutional: See HPI EENT: See HPI Cardiovascular: See HPI Respiratory: See HPI Gastrointestinal: See HPI Genitourinary: No symptoms reported Male Genitourinary: No symptoms reported Musculoskeletal: No symptoms reported Skin: No symptoms reported Hematologic/Lymphatic: No symptoms reported Neurological/Psychological: No symptoms reported Physical Exam - Vital signs Vitals: Temp Pulse Resp BP Pulse Ox 98.8 F 98 16 121/68 94 12/12/18 11:39 12/12/18 11:39 12/12/18 11:39 12/12/18 11:39 12/12/18 11:39 - Notes Notes: PHYSICAL EXAMINATION: Reviewed vital signs and charting by RN GENERAL: Alert, interacts well. No acute distress. HEAD: Normocephalic, atraumatic. EYES: Pupils equal and round. Extraocular movements intact. ENT: Oral mucosa moist, tongue midline. Purulent discharge coming from just behind the #17 tooth. The left external auditory canal is swollen unable to visualize TM NECK: Full range of motion. Trachea midline. LUNGS: Clear to auscultation bilaterally, no wheezes, rales, or rhonchi. No respiratory distress. HEART: Regular rate and rhythm. No murmur ABDOMEN: soft, non-tender. No distention. Bowel sounds present EXTREMITIES: Moves all 4 extremities spontaneously. No edema, No cyanosis. PSYCH: Normal affect, normal mood. SKIN: Warm, dry, normal turgor. No rashes or lesions noted. Course - Re-evaluation Re-evalutation: 12/12/18 14:15 Patient presents with multiple complaints. Patient says the pain is been unbearable but he is not given antibiotics a chance to take effect. Patient has been complaining that his sugars were up to 400 last night but blood sugars were approximately 175 here today. VBG showed an actual base excess of 1.5 with normal pH. Bicarb 30. Patient does have a significant dental infection and I will also start him on penicillin. There is no evidence of any concerning problems that we will keep him in the emergency department here and he is stable for discharge. Vital signs are all within normal limits and he is afebrile. 12/12/18 14:16 12/12/18 14:18 - Vital Signs Vital signs: Temp Pulse Resp BP Pulse Ox 98.8 F 98 16 121/68 94 12/12/18 11:39 12/12/18 11:39 12/12/18 11:39 12/12/18 11:39 12/12/18 11:39 - Laboratory Result Diagrams: 12/12/18 11:55 12/12/18 11:55 Laboratory results interpreted by me: 12/12/18 12/12/18 11:55 11:55 RBC 3.87 L Hgb 10.7 L Hct 32.3 L RDW 14.8 H BUN 25 H Glucose 174 H Discharge - Discharge Clinical Impression: Dental infection Otitis media Qualifiers: Otitis media type: suppurative Chronicity: acute Laterality: left Recurrence: not specified as recurrent Spontaneous tympanic membrane rupture: without spontaneous rupture Qualified Code(s): H66.002 - Acute suppurative otitis media without spontaneous rupture of ear drum, left ear Otitis externa Qualifiers: Otitis externa type: unspecified type Chronicity: acute Laterality: left Qualified Code(s): H60.502 - Unspecified acute noninfective otitis externa, left ear Condition: Good Disposition: HOME, SELF-CARE Additional Instructions: Please continue to use the moxifloxacin eardrops, 4 drops twice daily using the wick, you should change the wick every 2 days. Please continue to take the ciprofloxacin and also the penicillin that I have prescribed you for your tooth infection. Also please remember that the ciprofloxacin can cause low blood sugars, so please monitor your sugar at least 3 times daily, and avoid taking this medication with any dairy product, or calcium supplementation as it deactivate the drug makes it ineffective. You need to take this medication for 10 days total. Please call the ENT on Saturday morning for the follow-up appointment that was arranged. If your symptoms worsen you develop fever, or things are not improving over the next several days, do not hesitate to return to the emergency department. Referrals: SIOMARA CARPIO, DO [Primary Care Provider] - Follow up as needed
[2018-12-12 14:49] VITALS: BP 139/75
== END 2018-12-12 14:46 | disposition home or self-care (01) ==
LOC: ER 11:23
DX: K04.7 Periapical abscess without sinus (principal); H66.002 Acute suppurative otitis media without spontaneous rupture of ear drum, left ear; H60.502 Unspecified acute noninfective otitis externa, left ear; E10.9 Type 1 diabetes mellitus without complications; H92.02 Otalgia, left ear; R68.84 Jaw pain; F17.200 Nicotine dependence, unspecified, uncomplicated; I10 Essential (primary) hypertension
CPT/HCPCS: 36415; 80053; 82803; 85025; 99284

== ENCOUNTER → 2019-01-20 | Outpatient (CLI) | payer MEDICARE, MEDICAID ==
[2019-01-20 13:08] LABS: ABSOLUTE EOSINOPHILS # (AUTO) 0.3 10^3/uL (0.0-0.6); ABSOLUTE LYMPHOCYTES (AUTO) 1.8 10^3/uL (0.5-4.7); ABSOLUTE MONOCYTES (AUTO) 0.4 10^3/uL (0.1-1.4); ABSOLUTE NEUT (AUTO) 3.1 10^3/uL (1.7-8.2); BASOPHILS % (AUTO) 0.8 % (0-2); HEMOGLOBIN 13.4 g/dL (13.5-17.0); LYMPHOCYTES % (AUTO) 31.4 % (13-45); MEAN CORPUSCULAR HEMOGLOBIN 28.1 pg (27.0-33.4); MEAN CORPUSCULAR HGB CONC 33.4 g/dL (32.0-36.0); MEAN CORPUSCULAR VOLUME 84 fl (80-97); MONOCYTES % (AUTO) 7.3 % (3-13); PLATELET COUNT 271 10^3/uL (150-450); RED BLOOD COUNT 4.75 10^6/uL (4.35-5.55); RED CELL DISTRIBUTION WIDTH 15.1 % (11.5-14.0); SEGMENTED NEUTROPHILS % (AUTO) 54.5 % (42-78); TOTAL CELLS COUNTED % (AUTO) 100 %; WHITE BLOOD COUNT 5.6 10^3/uL (4.0-10.5)
[2019-01-20 13:27] LABS: ALBUMIN 4.5 g/dL (3.5-5.0); ALKALINE PHOSPHATASE 82 U/L (38-126); ANION GAP 9 (5-19); ASPARTATE AMINO TRANSFERASE 29 U/L (17-59); BILIRUBIN,DIRECT 0.3 mg/dL (0.0-0.4); BILIRUBIN,TOTAL 0.6 mg/dL (0.2-1.3); BLOOD UREA NITROGEN 11 mg/dL (7-20); CALCIUM 10.4 mg/dL (8.4-10.2); CARBON DIOXIDE 30 mmol/L (22-30); CHLORIDE 99 mmol/L (98-107); GLUCOSE 126 mg/dL (75-110); POTASSIUM 4.6 mmol/L (3.6-5.0); TOTAL PROTEIN 7.4 g/dL (6.3-8.2)
[2019-01-20 13:27] LABS: UR PRO/CREAT RATIO RESULT 0.3 mg/mg (0.0-0.2); URINE CREATININE 44.6 mg/dL (24-392); URINE PROTEIN 14.4 mg/dL (<12)
== END ==
LOC: OD 11:39
PROVIDERS: ATTEND Physician Assistant Medical
DX: I12.9 Hypertensive chronic kidney disease with stage 1 through stage 4 chronic kidney disease, or unspecified chronic kidney disease (principal); N18.2 Chronic kidney disease, stage 2 (mild); R80.9 Proteinuria, unspecified; R60.9 Edema, unspecified; E23.2 Diabetes insipidus
CPT/HCPCS: 36415; 80053; 82570; 84156; 85025

== ENCOUNTER 2019-01-26 08:45 | Day surgery (SDC) | payer MEDICARE, MEDICAID ==
[~2019-01-26 08:45] MED LIST: PROPOFOL INJ 200 MG/20 ML VIAL IV ONE
[2019-01-26] MEDS ORDERED: ONABOTULINUMTOXINA INJ/PF 100 UNIT SDV IJ ONE (09:00)
[2019-01-26 10:55] VITALS: BP 124/80
--- NOTE | 2019-01-26 12:45 | Operative Report ---
Operative Report DATE OF SURGERY: 01/26/19 PREOPERATIVE DIAGNOSIS: Nausea vomiting, gastroparesis POSTOPERATIVE DIAGNOSIS: Residual fluid noted in the stomach status post injection of Botox injection. 100 units and 4 mL's OPERATION: EGD with submucosal injection SURGEON: DIONE SCHMITZ ANESTHESIA: LMAC TISSUE REMOVED OR ALTERED: As noted above COMPLICATIONS: None. ESTIMATED BLOOD LOSS: None. INTRAOPERATIVE FINDINGS: As noted above. PROCEDURE: The risks benefits and alternatives of the procedure explained to the patient in detail and informed consent is obtained.A GIF Olympus video scope was inserted into the patient's mouth and hypopharynx, the esophagus is identified intubated and insufflated, the scope was then advanced through the esophagus stomach and duodenum, retroflexion maneuver is done, the esophagus stomach and first and second portions of the duodenum examined. Patient tolerated the procedure well. No immediate postprocedure complications are noted. Patient is discharged in good condition. Discharge date 01/26/2019. Discharge diet: Regular. Discharge activity: Regular. 2 to 3-week follow-up to discuss findings. Patient is instructed to call the office or proceed to the emergency room should there be any further proximal questions. Wait on the pathology.
== END 2019-01-26 10:40 | disposition home or self-care (01) ==
LOC: END 08:45
PROVIDERS: ATTEND Internal Medicine Gastroenterology
DX: R11.2 Nausea with vomiting, unspecified (principal); K29.50 Unspecified chronic gastritis without bleeding; K31.84 Gastroparesis; I10 Essential (primary) hypertension; E10.40 Type 1 diabetes mellitus with diabetic neuropathy, unspecified; Z79.4 Long term (current) use of insulin; E78.5 Hyperlipidemia, unspecified
CPT/HCPCS: 88342 ×2; 88305 ×2; 00731; J2704; J0585; 43236; 43239; 731

== ENCOUNTER 2019-02-25 07:36 | Day surgery (SDC) | payer MEDICARE, MEDICAID ==
[2019-02-25] MEDS ORDERED: ONABOTULINUMTOXINA INJ/PF 100 UNIT SDV IJ ONE (08:15)
[2019-02-25] MEDS ORDERED: PROMETHAZINE HCL INJ 25 MG/1 ML VIAL ONE (09:51)
[2019-02-25 10:29] VITALS: BP 119/62
--- NOTE | 2019-02-25 12:50 | Operative Report ---
Operative Report DATE OF SURGERY: 02/25/19 Operative Report: The risks benefits and alternatives of the procedure explained to the patient in detail and informed consent is obtained.A GIF Olympus video scope was inserted into the patient's mouth and hypopharynx, the esophagus is identified intubated and insufflated ,the scope was then advanced through the esophagus stomach and duodenum, retroflexion maneuver is done, the esophagus stomach and first and second portions of the duodenum examined. PREOPERATIVE DIAGNOSIS: Nausea vomiting POSTOPERATIVE DIAGNOSIS: Nausea vomiting, gastroparesis status post Botox injection 100 units and 4 mL's OPERATION: EGD with submucosal injection SURGEON: DIONE SCHMITZ ANESTHESIA: LMAC TISSUE REMOVED OR ALTERED: None. COMPLICATIONS: None. ESTIMATED BLOOD LOSS: None. INTRAOPERATIVE FINDINGS: As noted above. PROCEDURE: Patient tolerated the procedure well. No immediate postprocedure complications are noted. Patient is discharged in good condition. Discharge date 02/25/2019. Discharge diet: Regular. Discharge activity: Regular. 2 to 3-week follow-up to discuss findings. Patient is instructed to call the office or proceed to the emergency room should there be any further problems or questions. Wait on the pathology.
== END 2019-02-25 10:19 | disposition home or self-care (01) ==
LOC: END 07:36
PROVIDERS: ATTEND Internal Medicine Gastroenterology
DX: K29.50 Unspecified chronic gastritis without bleeding (principal); K21.9 Gastro-esophageal reflux disease without esophagitis; E66.9 Obesity, unspecified; E78.5 Hyperlipidemia, unspecified; D64.9 Anemia, unspecified; E10.21 Type 1 diabetes mellitus with diabetic nephropathy; Z68.30 Body mass index [BMI] 30.0-30.9, adult; Z79.899 Other long term (current) drug therapy; Z79.4 Long term (current) use of insulin
CPT/HCPCS: 43236; 82962; 00731; J2550; J2704; J0585; 731

== ENCOUNTER 2019-02-25 15:04 | Inpatient (IN) | payer MEDICARE, MEDICAID ==
[2019-02-25] MEDS ORDERED: NORMAL SALINE 1000 ML 1,000 ML IV ONE (15:28)
--- NOTE | 2019-02-25 15:37 | ER Document Report ---
ED Medical Screen (RME) - General Chief Complaint: Fever Stated Complaint: FEVER Time Seen by Provider: 02/25/19 15:27 TRAVEL OUTSIDE OF THE [place] IN LAST 30 DAYS: No - HPI Notes: 02/25/19 15:37 33-year-old male with history of type I diabetic who used to the emergency department with with complaints of fever, chest pain, heart racing since he had an EGD this morning with Dr. Horan. He states that he has had a scope before and he has never felt like this after. States that he went home and felt very fatigued and dehydrated and when he woke up from a nap he had a fever of 101.6. He states that he took a BC powder arthritis which had Tylenol in it but he is unsure of the dose about 1 hour prior to arrival. He denies any chary vomiting or blood in vomit. He admits to slight shortness of breath. States his last sugar was 189. I performed a medical screening exam on patient and have ordered initial labs and initial diagnostic studies. Advised charge nurse Trav of patient and asked for him to be bedded as quickly as possible. - Related Data Allergies/Adverse Reactions: No Known Allergies Allergy (Verified 02/25/19 07:52) Past Medical History - Past Medical History Cardiac Medical History: Reports: Hx Hypertension Denies: Hx Coronary Artery Disease, Hx Heart Attack Pulmonary Medical History: Denies: Hx Asthma, Hx Bronchitis, Hx COPD, Hx Pneumonia Neurological Medical History: Denies: Hx Cerebrovascular Accident, Hx Seizures Endocrine Medical History: Reports: Hx Diabetes Mellitus Type 1 Renal/ Medical History: Denies: Hx Peritoneal Dialysis Musculoskeltal Medical History: Reports Hx Arthritis Psychiatric Medical History: Reports: Hx Bipolar Disorder Past Surgical History: Reports: Hx Oral Surgery, Hx Orthopedic Surgery - Immunizations Hx Diphtheria, Pertussis, Tetanus Vaccination: Yes Physical Exam - Vital signs Vitals: Temp Pulse Resp BP Pulse Ox 100.4 F 125 H 20 114/69 97 02/25/19 15:11 02/25/19 15:11 02/25/19 15:11 02/25/19 15:11 02/25/19 15:11 Course - Vital Signs Vital signs: Temp Pulse Resp BP Pulse Ox 100.4 F 125 H 20 114/69 97 02/25/19 15:11 02/25/19 15:11 02/25/19 15:11 02/25/19 15:11 02/25/19 15:11
--- NOTE | 2019-02-25 16:02 | RADIOLOGY REPORT (SQ) ---
EXAM DESCRIPTION: CHEST SINGLE VIEW COMPLETED DATE/TIME: 02/25/2019 3:52 pm REASON FOR STUDY: fever, EGD this AM, eval for free air COMPARISON: 05/20/2017 EXAM PARAMETERS: NUMBER OF VIEWS: One view. TECHNIQUE: Single frontal radiographic view of the chest acquired. RADIATION DOSE: NA LIMITATIONS: None. FINDINGS: LUNGS AND PLEURA: No opacities, masses or pneumothorax. No pleural effusion. MEDIASTINUM AND HILAR STRUCTURES: No masses. Contour normal. HEART AND VASCULAR STRUCTURES: Heart normal in size. Normal vasculature. BONES: No acute findings. HARDWARE: None in the chest. OTHER: No other significant finding. IMPRESSION: NO ACUTE RADIOGRAPHIC FINDING IN THE CHEST. TECHNICAL DOCUMENTATION: JOB ID: [id number] [email or web address]- All Rights Reserved Reading location - IP/workstation name: [email or web address]
[2019-02-25 16:44] LABS: ABSOLUTE BASOPHILS # (AUTO) 0.1 10^3/uL (0.0-0.2); ABSOLUTE EOSINOPHILS # (AUTO) 0.1 10^3/uL (0.0-0.6); ABSOLUTE LYMPHOCYTES (AUTO) 0.8 10^3/uL (0.5-4.7); ABSOLUTE MONOCYTES (AUTO) 1.1 10^3/uL (0.1-1.4); ABSOLUTE NEUT (AUTO) 13.4 10^3/uL (1.7-8.2); BASOPHILS % (AUTO) 0.3 % (0-2); EOSINOPHILS % (AUTO) 0.4 % (0-6); HEMATOCRIT 39.4 % (37.9-51.0); HEMOGLOBIN 13.2 g/dL (13.5-17.0); LYMPHOCYTES % (AUTO) 5.5 % (13-45); MEAN CORPUSCULAR HEMOGLOBIN 27.8 pg (27.0-33.4); MEAN CORPUSCULAR HGB CONC 33.4 g/dL (32.0-36.0); MEAN CORPUSCULAR VOLUME 83 fl (80-97); MONOCYTES % (AUTO) 7.3 % (3-13); PLATELET COUNT 291 10^3/uL (150-450); RED BLOOD COUNT 4.74 10^6/uL (4.35-5.55); SEGMENTED NEUTROPHILS % (AUTO) 86.5 % (42-78); TOTAL CELLS COUNTED % (AUTO) 100 %; WHITE BLOOD COUNT 15.5 10^3/uL (4.0-10.5)
[2019-02-25] MEDS ORDERED: RINGERS SOLUTION,LACTATED 1,000 ML IV ONE (16:45)
--- NOTE | 2019-02-25 16:45 | ER Document Report ---
ED General - General Chief Complaint: Fever Stated Complaint: FEVER Time Seen by Provider: 02/25/19 15:27 TRAVEL OUTSIDE OF THE [place] IN LAST 30 DAYS: No - HPI Notes: Patient presents for concern of fever chills and chest discomfort after having an EEG D today by Dr. Juarez. He was provided Botox in his stomach for his gastroparesis. He is having chest discomfort more in the lateral aspect of his left chest. Has not had a cough congestion fevers illnesses and did not have any signs or symptoms prior to his EGD. He has not had any vomiting - Related Data Allergies/Adverse Reactions: No Known Allergies Allergy (Verified 02/25/19 07:52) Past Medical History - Social History Smoking Status: Unknown if Ever Smoked Family History: Reviewed & Not Pertinent Patient has suicidal ideation: No Patient has homicidal ideation: No - Past Medical History Cardiac Medical History: Reports: Hx Hypertension Denies: Hx Coronary Artery Disease, Hx Heart Attack Pulmonary Medical History: Denies: Hx Asthma, Hx Bronchitis, Hx COPD, Hx Pneumonia Neurological Medical History: Denies: Hx Cerebrovascular Accident, Hx Seizures Endocrine Medical History: Reports: Hx Diabetes Mellitus Type 1 Renal/ Medical History: Denies: Hx Peritoneal Dialysis Musculoskeletal Medical History: Reports Hx Arthritis Psychiatric Medical History: Reports: Hx Bipolar Disorder Past Surgical History: Reports: Hx Oral Surgery, Hx Orthopedic Surgery - Immunizations Hx Diphtheria, Pertussis, Tetanus Vaccination: Yes Review of Systems - Review of Systems Constitutional: No symptoms reported EENT: No symptoms reported Cardiovascular: See HPI Respiratory: No symptoms reported Gastrointestinal: No symptoms reported Genitourinary: No symptoms reported Male Genitourinary: No symptoms reported Musculoskeletal: No symptoms reported Skin: No symptoms reported Hematologic/Lymphatic: No symptoms reported Neurological/Psychological: No symptoms reported Physical Exam - Vital signs Vitals: Temp Pulse Resp BP Pulse Ox 100.4 F 125 H 20 114/69 97 02/25/19 15:11 02/25/19 15:11 02/25/19 15:11 02/25/19 15:11 02/25/19 15:11 - General General appearance: Appears well, Alert - HEENT Head: Normocephalic, Atraumatic Eyes: Normal Conjunctiva: Normal Cornea: Normal Extraocular movements intact: Yes Pupils: PERRL - Respiratory Respiratory status: No respiratory distress Chest status: Nontender Breath sounds: Normal Chest palpation: Normal - Cardiovascular Rhythm: Regular Heart sounds: Normal auscultation Murmur: No - Abdominal Inspection: Normal Distension: No distension Bowel sounds: Normal Tenderness: Nontender - Back Back: Normal, Nontender - Extremities General upper extremity: Normal inspection, Normal ROM General lower extremity: Normal inspection, Normal ROM - Neurological Neuro grossly intact: Yes Cognition: Normal Orientation: AAOx4 Course - Re-evaluation Re-evalutation: 02/25/19 16:[address] Juarez, and discussed chest x-ray does not show any pneumo thorax or pneumomediastinum. Dr. Low did state that it is common for patients to have aspiration as he was on propofol. We discussed that radiology findings can take up to 48 hours to show. 02/25/19 19:29 Due to being type I diabetic tachycardia fever and CT showing aspiration pneumonia antibiotics started and will be placed in observation status in the hospital to ensure patient is improving - Vital Signs Vital signs: Temp Pulse Resp BP Pulse Ox 98.9 F 125 H 20 119/70 100 02/25/19 16:40 02/25/19 15:11 02/25/19 17:01 02/25/19 17:00 02/25/19 17:01 - Laboratory Result Diagrams: 02/25/19 16:09 02/25/19 16:09 Laboratory results interpreted by me: 02/25/19 02/25/19 16:09 16:09 WBC 15.5 H Hgb 13.2 L Lymph % (Auto) 5.5 L Absolute Neuts (auto) 13.4 H Seg Neutrophils % 86.5 H Glucose 202 H Discharge - Discharge Clinical Impression: Aspiration pneumonia Qualifiers: Aspiration pneumonia type: unspecified Laterality: left Lung location: lower lobe of lung Qualified Code(s): J69.0 - Pneumonitis due to inhalation of food and vomit Condition: Fair Disposition: HOME, SELF-CARE Admitting Provider: Esther (Hospitalist) Unit Admitted: Telemetry
[2019-02-25] MEDS ORDERED: KETOROLAC TROMETHAMINE INJ/PF 30 MG/1 ML SDV IV ONE (16:46)
[2019-02-25 16:58] LABS: ALBUMIN 4.6 g/dL (3.5-5.0); ALKALINE PHOSPHATASE 100 U/L (38-126); ANION GAP 13 (5-19); ASPARTATE AMINO TRANSFERASE 23 U/L (17-59); BILIRUBIN,DIRECT 0.1 mg/dL (0.0-0.4); BILIRUBIN,TOTAL 0.5 mg/dL (0.2-1.3); BLOOD UREA NITROGEN 16 mg/dL (7-20); CALCIUM 10.2 mg/dL (8.4-10.2); CARBON DIOXIDE 22 mmol/L (22-30); CHLORIDE 102 mmol/L (98-107); GLUCOSE 202 mg/dL (75-110); POTASSIUM 4.3 mmol/L (3.6-5.0); TOTAL PROTEIN 7.5 g/dL (6.3-8.2)
[2019-02-25] MEDS ORDERED: ACETAMINOPHEN 325 MG TABLET PO ONE (17:30)
[2019-02-25] MEDS ORDERED: ACETAMINOPHEN 325 MG TABLET ONE (18:09)
--- NOTE | 2019-02-25 18:27 | EKG REPORT ---
SEVERITY:- OTHERWISE NORMAL ECG - SINUS TACHYCARDIA : Confirmed by: Justin Gay MD 25-Feb-2019 18:26:48
--- NOTE | 2019-02-25 18:33 | RADIOLOGY REPORT (SQ) ---
EXAM DESCRIPTION: CT CHEST WITH COMPLETED DATE/TIME: 02/25/2019 6:13 pm REASON FOR STUDY: concern for aspiration after EKG, fever, CP COMPARISON: 02/25/2019 TECHNIQUE: CT scan of the chest performed using helical scanning technique with dynamic intravenous contrast injection. Images reviewed with lung, soft tissue and bone windows. Reconstructed coronal and sagittal MPR and MIP images reviewed. All images stored on PACS. All CT scanners at this facility use dose modulation, iterative reconstruction, and/or weight based d osing when appropriate to reduce radiation dose to as low as reasonably achievable (ALARA). [facility]: Dose Right [facility]: CareDose [facility]: Dose Right [facility]: Teradose 4D [facility]: Restore Flow Allografts CONTRAST TYPE AND DOSE: contrast/concentration: Isovue 350.00 mg/ml; Total Contrast Delivered: 80.0 ml; Total Saline Delivered: 45.1 ml RENAL FUNCTION: GFR > 60. RADIATION DOSE: CT Rad equipment meets quality standard of care and radiation dose reduction techniq ues were employed. CTDIvol: 8.8 mGy. DLP: 349 mGy-cm. . LIMITATIONS: None. FINDINGS: LUNGS AND PLEURA: Minimal parenchymal opacity at the left base with tree-in-bud appearance . Pneumonia. Right lung is clear. HILAR AND MEDIASTINAL STRUCTURES: No identified masses or abnormal nodes. HEART AND VASCULAR STRUCTURES: No aneurysm or dissection. No central pulmonary emboli. No pericardi al effusion. HARDWARE: None in the chest. UPPER ABDOMEN: No significant findings. Limited exam. THYROID AND OTHER SOFT TISSUES: No masses. No adenopathy. BONES: No significant finding. OTHER: No other significant finding. IMPRESSION: Minimal left basilar pneumonitis. TECHNICAL DOCUMENTATION: JOB ID: [id number] Quality ID # [id number]: Final reports with documentation of one or more dose reduction techniques (e.g., Au tomated exposure control, adjustment of the mA and/or kV according to patient size, use of iterative reconstruction technique) 2010 [employer]- All Rights Reserved Reading location - IP/workstation name: [email or web address]
[2019-02-25] MEDS ORDERED: LEVALBUTEROL HCL NEB 0.63 MG/3 ML AMPUL NEB PRN (19:27)
[2019-02-25] MEDS ORDERED: MORPHINE SULFATE 10 MG/ML INJ IV PRN ×5 (19:27→19:43)
[2019-02-25] MEDS ORDERED: ACETAMINOPHEN 325 MG TABLET PO PRN (19:27)
[2019-02-25] MEDS ORDERED: PIPERACILLIN/TAZOBACTAM 3.375 GM VIAL IV ONE (19:30)
[2019-02-25] MEDS ORDERED: VANCOMYCIN HCL INJ 1000 MG VIAL IV SCH (19:30)
[2019-02-25] MEDS ORDERED: DEXTROSE 50%-WATER 25 GM/50 ML DISP.SYRIN IV PRN ×2 (19:32)
[2019-02-25] MEDS ORDERED: GLUCAGON,HUMAN RECOMB 1 MG INJ IM PRN (19:32)
[2019-02-25] MEDS ORDERED: DEXTROSE 40% GEL 15 GM TUBE PO PRN ×2 (19:32)
[2019-02-25] MEDS ORDERED: MAGNESIUM HYDROXIDE SUSP 30 ML UDCUP PO PRN (19:33)
[2019-02-25] MEDS ORDERED: MAG HYDROX/AL HYDROX/SIMETH SUSP 30 ML UDCUP PO PRN (19:33)
[2019-02-25] MEDS ORDERED: ZOLPIDEM TARTRATE 5 MG TABLET PO PRN ×2 (19:33→20:20)
[2019-02-25] MEDS ORDERED: PROMETHAZINE HCL INJ 25 MG/1 ML VIAL IV PRN (19:33)
[2019-02-25] MEDS ORDERED: CETIRIZINE 10 MG TABLET PO PRN (20:16)
[2019-02-25] MEDS ORDERED: QUETIAPINE FUMARATE 25 MG TABLET PO PRN (20:19)
[2019-02-25] MEDS: PIPERACILLIN SODIUM/TAZOBACTAM 3.375 GM in NORMAL SALINE 100 ML IV SCH (20:31)
[2019-02-25 20:44] LABS: FREE T3 4.74 pg/mL (2.77-5.27); FREE T4 (FREE THYROXINE) 1.14 ng/dL (0.78-2.19)
[2019-02-25] MEDS: ACETYLCYSTEINE 20% SOLN 800 MG/4 ML VIAL.NEB NEB SCH (20:51)
[2019-02-25] MEDS: RINGERS SOLUTION,LACTATED 1,000 ML IV PRN (21:47)
[2019-02-25] MEDS ORDERED: CLINDAMYCIN 600 MG/D5W RTU 600 MG/50 ML RTUPB IV SCH (22:00)
[2019-02-25] MEDS ORDERED: INSULIN REG, HUMAN 100 UNIT/ML 3 ML VIAL (PYX) SUBCUT SCH (22:00)
[2019-02-25] MEDS: VANCOMYCIN HCL 1,500 MG in DEXTROSE 5%-WATER 250 ML IV SCH (22:20)
[2019-02-25] MEDS: SUCRALFATE 1 GM TABLET PO SCH (22:54)
--- NOTE | 2019-02-25 23:55 | PDOC H&P ---
History of Present Illness Admission Date/PCP: 02/25/2019 19:30 Dr. Juarez Patient complains of: Fever History of Present Illness: DESTINEY GARRISON is a 33 year old male who presented to the emergency room with acute fever. He admits being treated by Dr. Juarez this morning with an EGD and a Botox injection in his stomach as therapy for his chronic diabetic gastroparesis. He received conscious sedation for the procedure. In recovery immediately after the procedure he was coughing and was also nauseated and vomited clear emesis. After discharge he was feeling more fatigued and dehyd rated than usual after an EGD. He laid down for a nap and awoke with a fever of 100.6 F, mild dyspnea at rest, worsened by exertion, and an aching discomfort in his left lateral chest. He took a BC powder (arthritis formula) at home and decided to come to the emergency room for further evaluation and treatment. He denies prior similar symptoms and has not identified any additional aggravating or ameliorating factors for his fever. In the emergency room he was found to be tachycardic (120s) and mildly tachypneic. A CT scan of his chest revealed a left lower lobe pneumonitis to be present. Patient was subsequently admitted to the hospital for further evaluation and treatment. Past Medical History Cardiac Medical History: Reports: Hyperlipidema, Hypertension Denies: Coronary Artery Disease, Myocardial Infarction Pulmonary Medical History: Reports: Pneumonia - X 2 Denies: Asthma, Bronchitis, Chronic Obstructive Pulmonary Disease (COPD), Respiratory Failure, Tuberculosis EENT Medical History: Reports: Nose - Allergic rhinitis Denies: Cataracts, Ears - Hearing aids Neurological Medical History: Denies: Hemorrhagic CVA, Ischemic CVA, Multiple Sclerosis, Seizures Endocrine Medical History: Reports: Diabetes Mellitus Type 1 Denies: Diabetes Mellitus Type 2, Hyperthyroidism, Hypothyroidism, Obesity Renal/ Medical History: Denies: Chronic Kidney Disease, Nephrolithiasis Malignancy Medical History: Reports: None GI Medical History: Reports: Other - Diabetic gastroparesis Denies: Cirrhosis, Crohn's Disease, Hepatitis, Ulcerative Colitis Musculoskeltal Medical History: Reports: Arthritis Denies: Gout Skin Medical History: Denies: Eczema, Psoriasis Psychiatric Medical History: Reports: Bipolar Disorder Denies: Alcohol Dependency, Substance Abuse, Tobacco Dependency Traumatic Medical History: Reports: None Hematology: Reports: Anemia Denies: Bleeding Tendencies Infectious Medical History: Reports: None Past Surgical History Past Surgical History: Reports: Orthopedic Surgery - Compound fracture of the right forearm as a child, Other - Oral surgery Social History Information Source: Patient Lives with: Family, Spouse/Significant other Smoking Status: Never Smoker Frequency of Alcohol Use: Occasional Hx Recreational Drug Use: No Drugs: None Hx Prescription Drug Abuse: No - Advance Directive Resuscitation Status: Full Code Surrogate healthcare decision maker:: Lilliejuana Garrison Family History Family History: CAD, DM, Hypertension, Malignancy, Other - Kidney disease Parental Family History Reviewed: Yes Children Family History Reviewed: No Sibling(s) Family History Reviewed.: Yes Medication/Allergy Home Medications: Alprazolam [Xanax] 2 mg PO Q12 02/25/19 Amlodipine Besylate [Norvasc 5 mg Tablet] 5 mg PO DAILY 02/25/19 Atorvastatin Calcium [Lipitor 40 mg Tablet] 40 mg PO QHS 02/25/19 Fluticasone Propionate [Flonase Nasal [place] 50 Mcg/[place] 16 gm] 1 spray NASL DAILYP PRN 02/25/19 Furosemide [Lasix 20 mg Tablet] 20 mg PO DAILY 02/25/19 Gabapentin [Neurontin 300 mg Capsule] 900 mg PO Q8 02/25/19 Insulin Lispro [Humalog Insulin (Lispro) 100 unit/mL] 0 units SQ .SLIDING SCALE 02/25/19 Omeprazole 40 mg PO DAILY 02/25/19 Oxycodone HCl/Acetaminophen [Percocet 10-325 mg Tablet] 1 tab PO Q8HP PRN 02/25/19 Quetiapine Fumarate [Seroquel] 50 mg PO QPM 02/25/19 Zolpidem Tartrate [Ambien] 10 mg PO QHS 02/25/19 Allergies/Adverse Reactions: No Known Allergies Allergy (Verified 02/25/19 07:52) Review of Systems Constitutional: PRESENT: as per HPI, fatigue, fever(s) Eyes: ABSENT: visual disturbances, other - Eye pain Ears: ABSENT: hearing changes, other - Ear pain Nose, Mouth, and Throat: ABSENT: mouth pain, sore throat Cardiovascular: PRESENT: as per HPI, chest pain, dyspnea on exertion. ABSENT: edema, orthropnea, palpitations Respiratory: PRESENT: as per HPI, cough, dyspnea Gastrointestinal: PRESENT: as per HPI, nausea, vomiting. ABSENT: abdominal pain, constipation, diarrhea Genitourinary: ABSENT: dysuria, hematuria Musculoskeletal: ABSENT: joint swelling, muscle weakness Integumentary: ABSENT: pruritus, rash Neurological: ABSENT: confusion, convulsions, focal weakness, memory loss, syncope Psychiatric: ABSENT: anxiety, depression Endocrine: ABSENT: cold intolerance, heat intolerance Hematologic/Lymphatic: ABSENT: easy bleeding, easy bruising Allergic/Immunologic: PRESENT: seasonal rhinorrhea Physical Exam Vital Signs: Temp Pulse Resp BP Pulse Ox 98.9 F 125 H 20 119/70 100 02/25/19 16:40 02/25/19 15:11 02/25/19 17:01 02/25/19 17:00 02/25/19 17:01 Intake & Output 02/23/19 02/24/19 02/25/19 23:59 23:59 23:59 Intake Total 1000 Balance 1000 Weight 80 kg General appearance: PRESENT: no acute distress, cooperative Head exam: PRESENT: atraumatic, normocephalic Eye exam: PRESENT: conjunctiva pink. ABSENT: conjunctival injection, scleral icterus Ear exam: PRESENT: normal external ear exam. ABSENT: bleeding, drainage Mouth exam: PRESENT: dry mucosa, neck supple Neck exam: ABSENT: thyromegaly, tracheal deviation Respiratory exam: PRESENT: chest wall tenderness - left lower anterolateral chest, rales - Minimal coarse rales left base anteriorly and laterally, symmetrical, unlabored Cardiovascular exam: PRESENT: tachycardia. ABSENT: clicks, gallop, rubs Pulses: PRESENT: normal radial pulses, normal dorsalis pedis pul Vascular exam: PRESENT: normal capillary refill. ABSENT: pallor GI/Abdominal exam: PRESENT: normal bowel sounds, soft Rectal exam: PRESENT: deferred Extremities exam: ABSENT: joint swelling, pedal edema Musculoskeletal exam: ABSENT: deformity, dislocation Neurological exam: PRESENT: alert, oriented to person, oriented to place, oriented to time, oriented to situation, CN II-XII grossly intact. ABSENT: motor sensory deficit Psychiatric exam: PRESENT: appropriate affect, normal mood Skin exam: PRESENT: dry, intact, warm. ABSENT: jaundice, rash, urticaria Results Laboratory Results: 02/25/19 16:09 02/25/19 16:09 02/25/19 02/25/19 16:09 16:09 WBC 15.5 H RBC 4.74 Hgb 13.2 L Hct 39.4 MCV 83 MCH 27.8 MCHC 33.4 RDW 14.0 Plt Count 291 Seg Neutrophils % 86.5 H Sodium 137.1 Potassium 4.3 Chloride 102 Carbon Dioxide 22 Anion Gap 13 BUN 16 Creatinine 1.00 Est GFR ( Amer) > 60 Glucose 202 H Calcium 10.2 Total Bilirubin 0.5 AST 23 Alkaline Phosphatase 100 Total Protein 7.5 Albumin 4.6 Lipase 70.0 02/25/19 16:09 Troponin I < 0.012 Impressions: Chest X-Ray 02/25/19 15:28 IMPRESSION: NO ACUTE RADIOGRAPHIC FINDING IN THE CHEST. Chest CT 02/25/19 16:56 IMPRESSION: Minimal left basilar pneumonitis. Assessment and Plan - Diagnosis (1) Postprocedural aspiration pneumonitis Is this a current diagnosis for this admission?: Yes Plan: Patient will be treated with an aggressive pulmonary toilet utilizing nebulized Xopenex and Mucomyst. He will receive antibiotic therapy utilizing vancomycin and Zosyn. He will receive supplemental oxygen as required to maintain adequate O2 saturation. Fever will be treated with acetaminophen and his generalized discomfort will be treated with morphine sulfate 2 to 4 mg IV every 2 hours on as-needed basis per sliding scale. (2) SIRS (systemic inflammatory response syndrome) Is this a current diagnosis for this admission?: Yes Plan: Patient will be observed for further evidence of sepsis. Serial lactic acids will be performed and daily CBCs will be obtained. Daily metabolic profiles will also be obtained to include a magnesium level. Patient's vital signs be monitored closely throughout his hospital course. (3) Hypertension Qualifiers: Hypertension type: essential hypertension Qualified Code(s): I10 - Essential (primary) hypertension Is this a current diagnosis for this admission?: Yes Plan: Patient be continued on his usual antihypertensive regimen and his blood pressure will be checked frequently throughout his hospitalization. Patient will be maintained on a cardiac diet. (4) Bipolar disorder in remission Is this a current diagnosis for this admission?: Yes Plan: Patient be continued on his usual bipolar medical regiment. He will be reevaluated clinically on a daily basis, with psychiatric consultation obtained if deemed necessary. (5) Diabetes mellitus type 1 with complications Is this a current diagnosis for this admission?: Yes Plan: Patient will be continued on his usual diabetic therapy. This will include a diabetic diet and before meals and at bedtime Accu-Cheks with sliding scale insulin coverage for hyperglycemia and a hypoglycemic protocol being in place. - Time Time Spent with patient: 25-34 minutes Medications reviewed and adjusted accordingly: Yes Anticipated discharge: Home - Inpatient Certification Based on my medical assessment, after consideration of the patient's comorbidities, presenting symptoms, or acuity I expect that the services needed warrant INPATIENT care.: Yes I certify that my determination is in accordance with my understanding of Medicare's requirements for reasonable and necessary INPATIENT services [42 CFR 412.3e].: Yes Medical Necessity: Significant Comorbidiites Make Outpatient Treatment Too Risky, Need Close Monitoring Due to Risk of Patient Decompensation, Need For IV Fluids, Need For Continuous Telemetry Monitoring, Need for Nebulizer Therapy and Monitoring of Response, Need for IV Antibiotics, Risk of Complication if Not Cared For in Hospital, Risk of Diagnosis Which Will Require Inpatient Eval/Care/Monitoring
[2019-02-25] MEDS: GABAPENTIN 300 MG CAPSULE PO SCH (23:57)
[2019-02-25] MEDS: METOCLOPRAMIDE HCL 10 MG TABLET PO SCH (23:58)
[2019-02-25] MEDS: FAMOTIDINE 20 MG TABLET PO SCH (23:58)
[2019-02-25] MEDS: ALPRAZOLAM 0.5 MG TABLET PO SCH (23:58)
[2019-02-25] MEDS: ATORVASTATIN CALCIUM 40 MG TABLET PO SCH (23:58)
[2019-02-26] MEDS: LEVALBUTEROL HCL NEB 1.25 MG/3 ML AMPUL NEB SCH ×4 (00:10→23:42)
[2019-02-26] MEDS: PIPERACILLIN SODIUM/TAZOBACTAM 3.375 GM in NORMAL SALINE 100 ML IV SCH ×4 (02:39→22:15)
[2019-02-26 05:34] LABS: VENOUS BLOOD BASE EXCESS -2.5 mmol/L; VENOUS BLOOD HCO3 22.8 mmol/L (20-32); VENOUS BLOOD PCO2 41.4 mmHg (35-63); VENOUS BLOOD PH 7.36 (7.30-7.42)
[2019-02-26 05:40] LABS: HEMATOCRIT 32.5 % (37.9-51.0); MEAN CORPUSCULAR HGB CONC 33.5 g/dL (32.0-36.0); MEAN CORPUSCULAR VOLUME 84 fl (80-97); PLATELET COUNT 250 10^3/uL (150-450); RED BLOOD COUNT 3.89 10^6/uL (4.35-5.55); RED CELL DISTRIBUTION WIDTH 14.2 % (11.5-14.0); WHITE BLOOD COUNT 10.9 10^3/uL (4.0-10.5)
[2019-02-26 05:41] LABS: HEMOGLOBIN 10.9 g/dL (13.5-17.0)
[2019-02-26 05:50] LABS: ANION GAP 8 (5-19); BLOOD UREA NITROGEN 14 mg/dL (7-20); CALCIUM 9.2 mg/dL (8.4-10.2); CARBON DIOXIDE 24 mmol/L (22-30); CHLORIDE 106 mmol/L (98-107); CHOLESTEROL 107.08 mg/dL (0-200); GLUCOSE 118 mg/dL (75-110); POTASSIUM 3.8 mmol/L (3.6-5.0); TRIGLYCERIDES 173 mg/dL (<150)
[2019-02-26] MEDS: OXYCODONE HCL IR 5 MG TABLET PO PRN ×3 (05:57→22:34)
[2019-02-26] MEDS: OXYCODONE-ACETAMINOPHEN 5-325 MG TABLET PO PRN ×3 (05:57→22:35)
[2019-02-26] MEDS: GABAPENTIN 300 MG CAPSULE PO SCH ×3 (05:58→22:23)
[2019-02-26] MEDS: HEPARIN SOD (PORCINE) 5,000 UNIT/ML 1 ML VIAL SUBCUT SCH ×4 (05:59→22:38)
[2019-02-26 06:01] LABS: DIRECT LDL 58 mg/dL (<100); VLDL CHOLESTEROL 34.6 mg/dL (10-31)
[2019-02-26] MEDS: SUCRALFATE 1 GM TABLET PO SCH ×4 (07:58→22:33)
[2019-02-26] MEDS: METOCLOPRAMIDE HCL 10 MG TABLET PO SCH ×4 (07:58→22:33)
[2019-02-26] MEDS: FAMOTIDINE 20 MG TABLET PO SCH ×4 (07:58→22:24)
[2019-02-26] MEDS: METOPROLOL SUCCINATE 50 MG TAB.SR.24H PO SCH (07:58)
[2019-02-26] MEDS: ACETYLCYSTEINE 20% SOLN 800 MG/4 ML VIAL.NEB NEB SCH ×2 (08:32→19:57)
[2019-02-26] MEDS: DOCUSATE SODIUM 100 MG CAPSULE PO SCH ×2 (11:26→17:38)
[2019-02-26] MEDS: VANCOMYCIN HCL 1,500 MG in DEXTROSE 5%-WATER 250 ML IV SCH ×2 (11:27→22:25)
[2019-02-26] MEDS: ALPRAZOLAM 0.5 MG TABLET PO SCH ×2 (11:27→22:22)
--- NOTE | 2019-02-26 11:42 | PDOC PROGRESS REPORT ---
Subjective Progress Note for:: 02/26/19 Subjective:: Patient is feeling better. Has some left-sided pleuritic pain posteriorly. Breathing feels comfortable. Reason For Visit: ASPIRATION PNEUMONITIS Physical Exam Vital Signs: Temp Pulse Resp BP Pulse Ox 97.6 F 89 14 111/70 100 02/26/19 07:19 02/26/19 08:15 02/26/19 08:15 02/26/19 07:19 02/26/19 08:15 Intake & Output 02/25/19 02/26/19 02/27/19 06:59 06:59 06:59 Intake Total 3460 Output Total 300 Balance 3160 Weight 80.6 kg General appearance: PRESENT: no acute distress, cooperative, well-developed Head exam: PRESENT: atraumatic, normocephalic Eye exam: PRESENT: conjunctiva pink. ABSENT: scleral icterus Ear exam: PRESENT: normal external ear exam. ABSENT: bleeding, drainage Mouth exam: PRESENT: moist, tongue midline Respiratory exam: PRESENT: chest wall tenderness - Left posterior lateral area, rhonchi - Left base, symmetrical, unlabored. ABSENT: prolonged expiratory phas, rales, tachypnea, wheezes Cardiovascular exam: PRESENT: RRR, +S1, +S2 GI/Abdominal exam: PRESENT: normal bowel sounds, soft. ABSENT: distended, guarding, tenderness Rectal exam: PRESENT: deferred Extremities exam: ABSENT: joint swelling, pedal edema, tenderness Musculoskeletal exam: PRESENT: ambulatory, normal inspection. ABSENT: deformity Neurological exam: PRESENT: alert, awake, oriented to person, oriented to place, oriented to time, oriented to situation, CN II-XII grossly intact Psychiatric exam: PRESENT: appropriate affect. ABSENT: agitated, anxious Focused psych exam: ABSENT: delusional, restlessness Skin exam: PRESENT: dry, normal color, warm. ABSENT: rash Results Laboratory Results: 02/26/19 05:13 02/26/19 05:13 02/25/19 02/25/19 02/25/19 16:09 16:09 16:09 WBC 15.5 H RBC 4.74 Hgb 13.2 L Hct 39.4 MCV 83 MCH 27.8 MCHC 33.4 RDW 14.0 Plt Count 291 Seg Neutrophils % 86.5 H VBG pH VBG pCO2 VBG HCO3 VBG Base Excess Sodium 137.1 Potassium 4.3 Chloride 102 Carbon Dioxide 22 Anion Gap 13 BUN 16 Creatinine 1.00 Est GFR ( Amer) > 60 Glucose 202 H Lactic Acid Calcium 10.2 Magnesium Total Bilirubin 0.5 AST 23 Alkaline Phosphatase 100 Total Protein 7.5 Albumin 4.6 Triglycerides Cholesterol LDL Cholesterol Direct VLDL Cholesterol HDL Cholesterol Lipase 70.0 TSH Free T4 1.14 Free T3 pg/mL 4.74 02/25/19 02/25/19 02/26/19 20:20 23:51 05:13 WBC RBC Hgb Hct MCV MCH MCHC RDW Plt Count Seg Neutrophils % VBG pH VBG pCO2 VBG HCO3 VBG Base Excess Sodium Potassium Chloride Carbon Dioxide Anion Gap BUN Creatinine Est GFR ( Amer) Glucose Lactic Acid 1.5 1.6 1.4 Calcium Magnesium Total Bilirubin AST Alkaline Phosphatase Total Protein Albumin Triglycerides Cholesterol LDL Cholesterol Direct VLDL Cholesterol HDL Cholesterol Lipase TSH Free T4 Free T3 pg/mL 02/26/19 02/26/19 02/26/19 05:13 05:13 05:13 WBC 10.9 H RBC 3.89 L Hgb 10.9 L D Hct 32.5 L MCV 84 MCH 28.0 MCHC 33.5 RDW 14.2 H Plt Count 250 Seg Neutrophils % VBG pH VBG pCO2 VBG HCO3 VBG Base Excess Sodium 138.3 Potassium 3.8 Chloride 106 Carbon Dioxide 24 Anion Gap 8 BUN 14 Creatinine 0.75 Est GFR ( Amer) > 60 Glucose 118 H Lactic Acid Calcium 9.2 Magnesium 1.8 Total Bilirubin AST Alkaline Phosphatase Total Protein Albumin Triglycerides 173 H Cholesterol 107.08 LDL Cholesterol Direct 58 VLDL Cholesterol 34.6 H HDL Cholesterol 31 L Lipase TSH 0.73 Free T4 Free T3 pg/mL 02/26/19 05:13 WBC RBC Hgb Hct MCV MCH MCHC RDW Plt Count Seg Neutrophils % VBG pH 7.36 VBG pCO2 41.4 VBG HCO3 22.8 VBG Base Excess -2.5 Sodium Potassium Chloride Carbon Dioxide Anion Gap BUN Creatinine Est GFR ( Amer) Glucose Lactic Acid Calcium Magnesium Total Bilirubin AST Alkaline Phosphatase Total Protein Albumin Triglycerides Cholesterol LDL Cholesterol Direct VLDL Cholesterol HDL Cholesterol Lipase TSH Free T4 Free T3 pg/mL 02/25/19 02/25/19 16:09 16:09 Troponin I < 0.012 NT-Pro-B Natriuret Pep < 11 Impressions: Chest X-Ray 02/25/19 15:28 IMPRESSION: NO ACUTE RADIOGRAPHIC FINDING IN THE CHEST. Chest CT 02/25/19 16:56 IMPRESSION: Minimal left basilar pneumonitis. Assessment and Plan - Diagnosis (1) Postprocedural aspiration pneumonitis Is this a current diagnosis for this admission?: Yes Plan: Patient is feeling somewhat better. The white blood cell count is down to 10.9. He is afebrile but still slightly tachycardic. The posterior lateral discomfort on the left is likely pleuritic. Continue vancomycin and Zosyn. (2) SIRS (systemic inflammatory response syndrome) Is this a current diagnosis for this admission?: Yes Plan: The patient is afebrile. He is still slightly tachycardic. He has Ringer's lactate infusing. We will continue his IV fluid. Lactic acid is normal. (3) Hypertension Qualifiers: Hypertension type: essential hypertension Qualified Code(s): I10 - Essential (primary) hypertension Is this a current diagnosis for this admission?: Yes Plan: Blood pressures are reasonably controlled. Continue metoprolol and monitor blood pressures. Adjust medications if needed. 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 Surprisingly, with his infection, his sugars are not out of control. We will monitor closely. I will discuss his glucose readings with him daily and make adjustments in his pump infusion. (5) Bipolar disorder in remission Is this a current diagnosis for this admission?: Yes Plan: The patient is stable. Continue low-dose Seroquel. - Time Time Spent with patient: Less than 15 minutes Medications reviewed and adjusted accordingly: Yes Anticipated discharge: Home
[2019-02-26] MEDS: RINGERS SOLUTION,LACTATED 1,000 ML IV PRN (17:38)
[2019-02-26] MEDS: ATORVASTATIN CALCIUM 40 MG TABLET PO SCH (22:24)
[2019-02-27] MEDS: PIPERACILLIN SODIUM/TAZOBACTAM 3.375 GM in NORMAL SALINE 100 ML IV SCH ×2 (04:51→08:23)
[2019-02-27] MEDS: HEPARIN SOD (PORCINE) 5,000 UNIT/ML 1 ML VIAL SUBCUT SCH (05:56)
[2019-02-27] MEDS: GABAPENTIN 300 MG CAPSULE PO SCH (05:58)
[2019-02-27 06:55] LABS: HEMATOCRIT 31.5 % (37.9-51.0); HEMOGLOBIN 10.6 g/dL (13.5-17.0); MEAN CORPUSCULAR HEMOGLOBIN 28.2 pg (27.0-33.4); MEAN CORPUSCULAR HGB CONC 33.8 g/dL (32.0-36.0); MEAN CORPUSCULAR VOLUME 83 fl (80-97); PLATELET COUNT 238 10^3/uL (150-450); RED BLOOD COUNT 3.77 10^6/uL (4.35-5.55); RED CELL DISTRIBUTION WIDTH 14.1 % (11.5-14.0); WHITE BLOOD COUNT 5.1 10^3/uL (4.0-10.5)
[2019-02-27 07:19] LABS: ANION GAP 7 (5-19); BLOOD UREA NITROGEN 10 mg/dL (7-20); CALCIUM 9.4 mg/dL (8.4-10.2); CARBON DIOXIDE 25 mmol/L (22-30); CHLORIDE 107 mmol/L (98-107); GLUCOSE 269 mg/dL (75-110)
[2019-02-27] MEDS: METOCLOPRAMIDE HCL 10 MG TABLET PO SCH (08:22)
[2019-02-27] MEDS: SUCRALFATE 1 GM TABLET PO SCH (08:22)
[2019-02-27] MEDS: FAMOTIDINE 20 MG TABLET PO SCH (08:22)
[2019-02-27] MEDS: METOPROLOL SUCCINATE 50 MG TAB.SR.24H PO SCH (08:30)
[2019-02-27] MEDS: OXYCODONE HCL IR 5 MG TABLET PO PRN (08:30)
[2019-02-27] MEDS: OXYCODONE-ACETAMINOPHEN 5-325 MG TABLET PO PRN (08:31)
[2019-02-27] MEDS: ALPRAZOLAM 0.5 MG TABLET PO SCH (09:19)
[2019-02-27] MEDS: VANCOMYCIN HCL 1,500 MG in DEXTROSE 5%-WATER 250 ML IV SCH (09:20)
[2019-02-27] MEDS: ACETYLCYSTEINE 20% SOLN 800 MG/4 ML VIAL.NEB NEB SCH (09:25)
[2019-02-27] MEDS: LEVALBUTEROL HCL NEB 1.25 MG/3 ML AMPUL NEB SCH (09:25)
--- NOTE | 2019-02-27 10:38 | PDOC DISCHARGE SUMMARY ---
General - Admit/Disc Date/PCP Admission Date/Primary Care Provider: 02/25/19 20:00 Discharge Date: 02/27/19 - Discharge Diagnosis (1) Postprocedural aspiration pneumonitis Is this a current diagnosis for this admission?: Yes Summary: Likely aspirated during procedure due to conscious sedation. Complete antibiotic therapy as ordered. (2) SIRS (systemic inflammatory response syndrome) Is this a current diagnosis for this admission?: Yes Summary: Resolve with antibiotics and IV fluids (3) Hypertension Is this a current diagnosis for this admission?: Yes Summary: Continue current blood pressure medications. The patient reports that he is out of several prescriptions and I will provide 2 weeks worth of medication (4) Diabetes mellitus type 1 with complications Is this a current diagnosis for this admission?: Yes Summary: Good control with his insulin pump. Continue current regimen. (5) Bipolar disorder in remission Is this a current diagnosis for this admission?: Yes Summary: Stable on Seroquel (6) Pleurisy Is this a current diagnosis for this admission?: Yes Summary: We discussed the use of topical agents such as Arnica gel. In addition I provided a small amount of tramadol tablets for the pleuritic pain. - Additional Information Resuscitation Status: Full Code Discharge Diet: Diabetic Discharge Activity: Activity As Tolerated, Balance Activity w/Rest Prescriptions: Amox Tr/Potassium Clavulanate [Augmentin 875-125 mg Tablet] 1 tab PO BID #20 tablet Sucralfate [Carafate 1 gm Tablet] 1 gm PO ACHS 14 Days #56 tablet Amlodipine Besylate [Norvasc 5 mg Tablet] 5 mg PO QHS 14 Days #14 tab Metoprolol Succinate [Toprol Xl 50 mg Tab.sr] 50 mg PO QAM 14 Days #14 tab.sr.24h Tramadol HCl [Ultram 50 mg Tablet] 50 mg PO Q8H PRN 3 Days #9 tablet PRN Reason: For Pain Home Medications: Alprazolam [Xanax] 2 mg PO Q12 02/25/19 Atorvastatin Calcium [Lipitor 40 mg Tablet] 40 mg PO QHS 02/25/19 Fluticasone Propionate [Flonase Nasal [place] 50 Mcg/[place] 16 gm] 1 spray NASL DAILYP PRN 02/25/19 Furosemide [Lasix 20 mg Tablet] 20 mg PO DAILY 02/25/19 Gabapentin [Neurontin 300 mg Capsule] 900 mg PO Q8 02/25/19 Insulin Lispro [Humalog Insulin (Lispro) 100 unit/mL] 0 units SQ .SLIDING SCALE 02/25/19 Omeprazole 40 mg PO DAILY 02/25/19 Oxycodone HCl/Acetaminophen [Percocet 10-325 mg Tablet] 1 tab PO Q8HP PRN 02/25/19 Quetiapine Fumarate [Seroquel] 50 mg PO QPM 02/25/19 Zolpidem Tartrate [Ambien] 10 mg PO QHS 02/25/19 Amlodipine Besylate [Norvasc 5 mg Tablet] 5 mg PO QHS 14 Days #14 tab 02/27/19 Amox Tr/Potassium Clavulanate [Augmentin 875-125 mg Tablet] 1 tab PO BID #20 tablet 02/27/19 Metoclopramide HCl [Reglan 10 mg Tablet] 10 mg PO ACHS tablet 02/27/19 Metoprolol Succinate [Toprol Xl 50 mg Tab.sr] 50 mg PO QAM 14 Days #14 tab.sr.24h 02/27/19 Sucralfate [Carafate 1 gm Tablet] 1 gm PO ACHS 14 Days #56 tablet 02/27/19 Tramadol HCl [Ultram 50 mg Tablet] 50 mg PO Q8H PRN 3 Days #9 tablet 02/27/19 History of Present Illness Patient complains of: Pneumonia History of Present Illness: DESTINEY GARRISON is a 33 year old male with insulin-dependent diabetes mellitus and multiple comorbidities. He was having Botox injections in the pyloric sphincter. Several days later he became short of breath and febrile with tachycardia. He was referred to the hospital service for admission. Hospital Course Hospital Course: The patient was placed on antibiotics and given fluid resuscitation. He still feels weak but is much better. He will complete antibiotic therapy as an outpatient. He needs to follow-up with multiple providers and be more compliant with medications. Physical Exam Vital Signs: Temp Pulse Resp BP Pulse Ox 98.3 F 105 H 16 152/89 H 100 02/27/19 08:20 02/27/19 08:20 02/27/19 08:20 02/27/19 08:20 02/27/19 08:20 Intake & Output 02/26/19 02/27/19 02/28/19 06:59 06:59 06:59 Intake Total 4460 1400 100 Output Total 300 850 Balance 4160 550 100 Weight 80.6 kg 80.6 kg General appearance: PRESENT: no acute distress, cooperative, well-developed Head exam: PRESENT: atraumatic, normocephalic Eye exam: PRESENT: conjunctiva pink. ABSENT: scleral icterus Mouth exam: PRESENT: moist, tongue midline Respiratory exam: PRESENT: clear to auscultation bucky, symmetrical, unlabored. ABSENT: rales, rhonchi, tachypnea, wheezes Cardiovascular exam: PRESENT: RRR, +S1, +S2 GI/Abdominal exam: PRESENT: normal bowel sounds, soft. ABSENT: distended, tenderness Extremities exam: ABSENT: joint swelling, pedal edema, tenderness Neurological exam: PRESENT: alert, awake, oriented to person, oriented to place, oriented to time, oriented to situation, CN II-XII grossly intact Psychiatric exam: PRESENT: appropriate affect. ABSENT: agitated, anxious Focused psych exam: ABSENT: delusional, restlessness Results Laboratory Results: 02/27/19 06:41 02/27/19 06:41 02/27/19 02/27/19 06:41 06:41 WBC 5.1 RBC 3.77 L Hgb 10.6 L Hct 31.5 L MCV 83 MCH 28.2 MCHC 33.8 RDW 14.1 H Plt Count 238 Sodium 139.4 Potassium 4.0 Chloride 107 Carbon Dioxide 25 Anion Gap 7 BUN 10 Creatinine 0.71 Est GFR ( Amer) > 60 Glucose 269 H Calcium 9.4 Magnesium 1.7 02/25/19 02/25/19 16:09 16:09 Troponin I < 0.012 NT-Pro-B Natriuret Pep < 11 Impressions: Chest X-Ray 02/25/19 15:28 IMPRESSION: NO ACUTE RADIOGRAPHIC FINDING IN THE CHEST. Chest CT 02/25/19 16:56 IMPRESSION: Minimal left basilar pneumonitis. Qualifiers - * PATIENT BEING DISCHARGED WITH ANY OF THE FOLLOWING DIAGNOSIS: No Acute Heart Failure - Is this a Heart Failure Patient?: No Plan Time Spent: Greater than 30 Minutes
[2019-02-27 11:43] VITALS: BP 120/70
[2019-02-27] MEDS: DOCUSATE SODIUM 100 MG CAPSULE PO SCH (12:40)
== END 2019-02-27 12:37 | disposition home or self-care (01) | DRG 206 ==
LOC: ER 15:04 → EH 20:00 → 4N 21:26
PROVIDERS: ADMIT Emergency Medicine; ATTEND Emergency Medicine
DX: J95.4 Chemical pneumonitis due to anesthesia (principal); E10.8 Type 1 diabetes mellitus with unspecified complications; E10.43 Type 1 diabetes mellitus with diabetic autonomic (poly)neuropathy; K31.84 Gastroparesis; R09.1 Pleurisy; I10 Essential (primary) hypertension; F31.9 Bipolar disorder, unspecified; Y83.8 Other surgical procedures as the cause of abnormal reaction of the patient, or of later complication, without mention of misadventure at the time of the procedure; Y92.89 Other specified places as the place of occurrence of the external cause; Z79.4 Long term (current) use of insulin; Z79.891 Long term (current) use of opiate analgesic; Z79.899 Other long term (current) drug therapy
CPT/HCPCS: 36415; 71045; 71260; 80048; 80053; 80061; 82803; 82962; 83036; 83605; 83690; 83735; 83880; 84439; 84443; 84481; 84484; 85025; 85027; 87040; 93005; 93010; 94640; 96361; 96374; 99285; J1644; J1885; J2543; J3370; J3490; J7030; J7050; J7060; J7120

== ENCOUNTER 2019-06-30 10:17 | Day surgery (SDC) | payer MEDICARE, MEDICAID ==
[~2019-06-30 10:17] MED LIST changes: -PROPOFOL INJ 200 MG/20 ML VIAL IV ONE; +SUCCINYLCHOLINE CHLORIDE INJ 200 MG/10 ML VIAL ONE
[2019-06-30] MEDS ORDERED: PROPOFOL INJ 200 MG/20 ML VIAL IV ONE (11:41)
[2019-06-30] MEDS ORDERED: ONABOTULINUMTOXINA INJ/PF 100 UNIT SDV IJ PRN (12:59)
[2019-06-30] MEDS ORDERED: CITRIC ACID/SODIUM CITRATE ORAL SOLN 15 ML UDCUP PO ONE (13:00)
[2019-06-30] MEDS ORDERED: METOCLOPRAMIDE HCL INJ/PF 10 MG/2 ML SDV ONE (13:00)
[2019-06-30] MEDS ORDERED: METOCLOPRAMIDE HCL INJ/PF 10 MG/2 ML SDV IV ONE (13:00)
[2019-06-30] MEDS ORDERED: FAMOTIDINE INJ/PF 20 MG/2 ML SDV IV ONE ×2 (13:00)
[2019-06-30] MEDS ORDERED: CITRIC ACID/SODIUM CITRATE ORAL SOLN 15 ML UDCUP ONE (13:00)
[2019-06-30] MEDS ORDERED: ONDANSETRON HCL INJ/PF 4 MG/2 ML SDV IV PRN (13:22)
[2019-06-30] MEDS ORDERED: MIDAZOLAM 2 MG/2 ML INJ ONE (13:31)
--- NOTE | 2019-06-30 14:41 | Operative Report ---
Operative Report DATE OF SURGERY: 06/30/19 Operative Report: The risks benefits and alternatives of the procedure explained to the patient in detail and informed consent is obtained.A GIF Olympus video scope was inserted into the patient's mouth and hypopharynx, the esophagus is identified intubated and insufflated, the scope was then advanced through the esophagus stomach and duodenum, retroflexion maneuver is done ,the esophagus stomach and first and second portions of the duodenum examined. PREOPERATIVE DIAGNOSIS: Nausea vomiting, gastroparesis POSTOPERATIVE DIAGNOSIS: Residual food noted in the stomach status post Botox injection OPERATION: EGD with biopsy SURGEON: DIONE SCHMITZ ANESTHESIA: LMAC TISSUE REMOVED OR ALTERED: As noted above. COMPLICATIONS: None. ESTIMATED BLOOD LOSS: None. INTRAOPERATIVE FINDINGS: As noted above. PROCEDURE: Patient tolerated the procedure well. No immediate postprocedure complications are noted. Patient is discharged in good condition. Discharge date 06/30/2019. Discharge diet: Regular. Discharge activity: Regular. 2 to 3-week follow-up to discuss findings. Patient is instructed to call the office or proceed to the emergency room should there be any further problems or questions. Of note prior to the procedure being done anesthesia had attempted to intubate the patient but was unsuccessful. Upon suctioning there is some bloody secretions that is already noted prior to the start of the procedure.
[2019-06-30 15:17] VITALS: BP 125/84
== END 2019-06-30 14:50 | disposition home or self-care (01) ==
LOC: OROUT 10:17
PROVIDERS: ATTEND Internal Medicine Gastroenterology
DX: E10.43 Type 1 diabetes mellitus with diabetic autonomic (poly)neuropathy (principal); K31.84 Gastroparesis; Z79.4 Long term (current) use of insulin; R11.14 Bilious vomiting; E10.40 Type 1 diabetes mellitus with diabetic neuropathy, unspecified; E10.21 Type 1 diabetes mellitus with diabetic nephropathy; E10.65 Type 1 diabetes mellitus with hyperglycemia; E55.9 Vitamin D deficiency, unspecified; D64.9 Anemia, unspecified; E78.5 Hyperlipidemia, unspecified; Z79.899 Other long term (current) drug therapy; F17.210 Nicotine dependence, cigarettes, uncomplicated; I12.9 Hypertensive chronic kidney disease with stage 1 through stage 4 chronic kidney disease, or unspecified chronic kidney disease; E10.22 Type 1 diabetes mellitus with diabetic chronic kidney disease; N18.9 Chronic kidney disease, unspecified
CPT/HCPCS: 43236; 00731; J2250; J2765; J0330; A9270; J2704; S0028; J0585; 731; J3490